=== PATIENT | female | born 1975 | race Caucasian/White ===

== ENCOUNTER 2019-12-10 19:08 | Emergency (ER) | payer OTHER, SELFPAY ==
[2019-12-10 19:22] VITALS: BP 122/80; PULSE 87; RESP 16; TEMP 36.4; O2SAT 99
--- NOTE | 2019-12-10 20:15 | ED.ABDPAIN ---
HPI - Abdominal Pain General Chief Complaint: Abdominal Pain Stated Complaint: severe abd pain,vomiting History of Present Illness HPI narrative: Severe abdominal abdominal pain for the past 3-4 days which is not being helped by Tylenol. Patient states that she threw up 2 today and she is not for sure what is causing it she was eating some nachos and then she started not to feel well and her gallbladder is already out. Related Data Home Medications Medication Instructions Recorded Confirmed bupropion HCl [Wellbutrin SR] 100 mg PO DAILY 12/10/19 12/10/19 metformin 1,000 mg PO BID 12/10/19 12/10/19 topiramate [Topamax] 50 mg PO BID 12/10/19 12/10/19 Allergies Allergy/AdvReac Type Severity Reaction Status Date / Time No Known Allergies Allergy Mild Verified 12/10/19 19:36 Review of Systems Review of Systems: Narrative: CONSTITUTIONAL: Denies fever, chills, or sweats. EYES: Denies visual changes, redness, or discharge. ENT: Denies rhinorrhea, congestion, sore throat, or otalgia. CARDIOVASCULAR:Denies chest pain, palpitations, or edema. RESPIRATORY: Denies cough or dyspnea. GASTROINTESTINAL: Reports abdominal pain, nausea, vomiting, or diarrhea. GENITOURINARY: Denies dysuria or hematuria. SKIN:[Denies rash or itching. MUSCULOSKELETAL:Denies back pain, joint pain, or myalgia. NEUROLOGIC: Denies headache, numbness, or weakness. PSYCHIATRIC:Denies anxiety or depression PMF Family History Family History (Updated 12/28/18 @ 15:50 by DOCTOR UNKNOWN) Father Diabetes mellitus Social History Social History Smoking status: Never smoker Gender identity (if verbalized by the patient): Female Comments At time as signature, I have reviewed and agree with nursing past medical, social, surgical and family history. Please see nursing chart for further information. There is no relevant family history pertinent to the presenting complaint. Exam Narrative: Exam Narrative: GENERAL:Well-appearing, well-nourished, and in no acute distress. HEAD:Normocephalic, atraumatic. EYES: PERRLA and EOMI. ENT: Nares clear, no rhinorrhea or epistaxis. Mucous membranes moist. NECK: Supple. CHEST: Clear to auscultation. No respiratory distress. HEART: Regular rate and rhythm. No murmur heard. Normal peripheral pulses. ABDOMEN: Soft, , nondistended, normal active bowel sounds. upper right quad painful to palpation EXTREMITIES: Normal range of motion. No edema. SKIN: Warm, dry, no rash. NEURO: No focal deficits. Alert and oriented x3. Course Vital Signs Vital signs: Vital Signs Temperature 97.6 F 12/10/19 19:22 Pulse Rate 87 12/10/19 19:22 Respiratory Rate 16 12/10/19 19:22 Blood Pressure 122/80 12/10/19 19:22 Pulse Oximetry 99 12/10/19 19:22 Temperature 97.6 F 12/10/19 19:22 Pulse Rate 87 12/10/19 19:22 Respiratory Rate 16 12/10/19 19:22 Blood Pressure 122/80 12/10/19 19:22 Pulse Oximetry 99 12/10/19 19:22 MDM - Abdominal Pain Lab Data Labs: Urine Glucose Negative Reference Range: Negative Urine Bilirubin Negative Reference Range: Negative Urine Ketone Negative Reference Range: Negative Urine Specific [place] 1.025 Reference Range:1.001-1.035 Urine Blood Negative Reference Range: Negative * * Urine pH 6.0 Reference Range: 5.0-9.0 Urine Protein Negative Reference Range: Negative Urine Urobilinogen 0.2 Reference Range: 0.2-1.0 Urine Nitrate Negative Reference Range: Negative Urine Leukocyte Trace Reference Range: Negative Urine Color Yellow Reference Range: Yellow Urine Characteristics Clear Discharge Plan Discharge C
== END 2019-12-10 20:29 | disposition home or self-care (01) ==
PROVIDERS: Emergency Provider Nurse Practitioner Family
DX: R10.11 Right upper quadrant pain (principal)
CPT/HCPCS: 81003; 99213; G0463

== ENCOUNTER → 2020-08-08 16:34 | Outpatient (CLI) | payer OTHER, SELFPAY ==
--- NOTE | ~2020-08-08 | MM_ITS ---
EXAMINATION: MM screening [facility] BI w dar HISTORY: Screening mammogram TECHNIQUE: Craniocaudal and mediolateral oblique 3-D tomosynthesis images were obtained and synthetic 2-D images were generated. CAD analysis was submitted and interpreted. COMPARISON: 07/09/2019, 05/18/2018, 05/13/2017 BREAST PARENCHYMAL COMPOSITION: There are scattered areas of fibroglandular density. FINDINGS: There is no evidence of suspicious mass, calcification, or architectural distortion to sugg est malignancy in either breast. There has been no suspicious interval change. IMPRESSION: 1. No mammographic evidence of malignancy. 2. Recommend routine screening mammography in one year. BI-RADS Category 1: Negative Reviewed, dictated and finalized at location A. BURNER
== END ==
PROVIDERS: Visit Provider Obstetrics & Gynecology Gynecology
DX: Z12.31 Encounter for screening mammogram for malignant neoplasm of breast (principal)
CPT/HCPCS: 77063; 77067

== ENCOUNTER 2021-07-16 09:33 | Emergency (ER) | payer OTHER, SELFPAY ==
--- NOTE | ~2021-07-16 | XR_ITS ---
EXAMINATION: XR chest 1V portable DATE: 07/16/2021 12:59 INDICATION: Right upper quadrant abdominal pain. TECHNIQUE: A single frontal view of the chest was obtained. COMPARISON: CT abdomen and pelvis 07/16/2021 FINDINGS: The chest demonstrates clear lungs without pneumonia, pleural effusion, or pneumothorax. Th e heart size is normal. IMPRESSION: 1. No acute cardiopulmonary disease. Reviewed, dictated and finalized at location B. ER MECHANIC
--- NOTE | ~2021-07-16 | CT_ITS ---
EXAMINATION: CT abdomen pelvis w con DATE: 07/16/2021 11:01 INDICATION: Right upper quadrant abdominal pain. TECHNIQUE: Computed tomography (CT) of the abdomen and pelvis was performed with 100 mL Omnipaque 350 intravenous contrast. Automated exposure control and iterative reconstruction technique were employe d. The dose-length product was 924.33 mGy-cm. COMPARISON: CT abdomen and pelvis 10/12/2010 FINDINGS: The visualized portions of the lung bases demonstrate mild atelectasis. Again seen is a 5 m m nodule in left lower lobe, likely benign. No pleural effusion. The heart size is normal. No pericar dial effusion. The liver is normal. The gallbladder is absent. There are surgical changes of the stom ach. The spleen, pancreas, adrenal glands, and kidneys are normal. There are no dilated loops of jennifer l. The appendix is normal. There are no pathologically enlarged lymph nodes. There is no free intrape ritoneal fluid. There is a retained catheter fragment in the subcutaneous fat anteriorly at the midli ne. There is mild subcutaneous scarring in left abdomen anteriorly. There is mild thoracolumbar spond ylosis. IMPRESSION: 1. No etiology for the patient's symptoms. Reviewed, dictated and finalized at location B. STRIAN TRAINER
[2021-07-16 09:35] VITALS: BP 152/100; PULSE 93; RESP 20; TEMP 36.4; O2SAT 100
[2021-07-16 10:18] LABS: Basophils Absolute Auto 0.1 K/mm3 (0.0-0.1); Basophils Percent Auto 0.6 % (0.2-1.2); Eosinophils Absolute Auto 0.1 K/mm3 (0-0.3); Eosinophils Percent Auto 1.1 % (0-4.4); Hematocrit 41.4 % (37.0-47.0); Hemoglobin 12.9 g/dL (12.0-15.0); Immature Granulocyte Absolute 0.05 K/mm3 (0.00-0.031); Immature Granulocyte Percent A 0.4 % (0-0.5); Lymphocytes Absolute Auto 2.65 K/mm3 (0.9-3.2); Lymphocytes Percent Auto 23.1 % (18.3-44.2); Mean Corpuscular HGB Conc 31.2 g/dl (32-36); Mean Corpuscular Hemoglobin 25.5 pg (26-34); Mean Platelet Volume 10.4 fl (7.4-10.4); Monocytes Absolute Auto 0.6 K/mm3 (0.1-0.6); Monocytes Percent Auto 5.1 % (2.6-8.5); Neutrophils Percent Auto 69.7 % (45.5-73.1); Platelet Count Result 386 k/mm3 (150-375); Red Blood Count 5.05 M/mm3 (4.2-5.4); Red Cell Distribution Width 15.2 % (11.5-14.5); White Blood Count 11.5 K/mm3 (4.5-10.0)
[2021-07-16 10:29] LABS: Alanine Aminotransferase 13 U/L (4-35); Albumin Level 4.1 g/dL (3.5-5.1); Alkaline Phosphatase 69 U/L (38-126); Anion Gap 8 mmol/L (8-16); Aspartate Amino Transferase 20 U/L (14-36); Bilirubin,Total 0.4 mg/dL (0.2-1.3); Blood Urea Nitrogen 16 mg/dL (7-17); Calcium 9.4 mg/dL (8.4-10.2); Carbon Dioxide 22 mmol/L (22-30); Chloride 107 mmol/L (98-107); Estimated CRCL calculation 53 ml/min; Estimated Glomerular Filt Rate 48; Glucose 83 mg/dL (65-110); Lipase 105 U/L (23-300); Potassium 3.8 mmol/L (3.4-5.0); Sodium 137 mmol/L (137-145)
[2021-07-16] MEDS: ONDANSETRON INJ 4 MG/2 ML VIAL IV PUSH (10:44)
[2021-07-16 10:50] LABS: Add Urine Microscopic? YES; Appearance Urine Cloudy (Clear); Bacteria Urine 1+ /hpf; Bilirubin Urine Negative (Negative); Color Urine Straw (Yellow); Glucose Urine UA Negative (Negative); Ketones Urine Negative (Negative); Leukocyte Esterase Ur 3+ LEU/UL (Negative); Nitrate Urine Negative (Negative); Protein Urine Negative (Negative); Specific Grav Ur 1.008 (1.001-1.035); Squamous Epithelial Cell Urine Moderate /hpf (Few); Transitional Epi Cells Urine Rare /hpf (None Seen); Urobilinogen Urine Negative mg/dL (<2.0)
[2021-07-16 10:54] LABS: Blood Urine Negative (Negative)
--- NOTE | 2021-07-16 13:08 | ED.GENADULT ---
HPI - General Adult General Chief complaint: Abdominal Pain Stated complaint: abd pain Time Seen by Provider: 07/16/21 09:39 Source: patient Mode of arrival: ambulatory Limitations: no limitations History of Present Illness HPI narrative: Patient is a 39-year-old female presenting with chief complaint of right upper quadrant pain from the urgent care. Patient reports that the pain has been present for 2 days and is intermittently sharp and achy in nature. Patient reports that her gallbladder was removed over 5 years ago and she had a gastric bypass in 2010. Patient denies any additional abdominal surgeries and states that her appendix is intact. Patient denies fever chills or vomiting, but reports nausea. Patient denies any cough, shortness of breath or chest pain. Patient has not taken anything to alleviate her symptoms. Patient did not note worsening of her symptoms with eating or drinking. Related Data Home Medications Medication Instructions Recorded Confirmed metformin 1,000 mg PO BID 12/10/19 12/10/19 topiramate [Topamax] 50 mg PO BID 12/10/19 12/10/19 bupropion HCl 100 mg tablet,12 hr 150 mg PO BID tablet 11/21/20 sustained-release ergocalciferol (vitamin D2) 1,250 50,000 unit PO WEEKLY cap 11/21/20 mcg (50,000 unit) capsule norethindrone ac-eth estradiol tablet 07/16/21 [Danni] Allergies Allergy/AdvReac Type Severity Reaction Status Date / Time No Known Allergies Allergy Mild Verified 07/16/21 09:38 Review of Systems Review of Systems: CONSTITUTIONAL: Denies fever, chills, or sweats. EYES: Denies visual changes, redness, or discharge. ENT: Denies rhinorrhea, congestion, sore throat, or otalgia. CARDIOVASCULAR: Denies chest pain, palpitations, or edema. RESPIRATORY: Denies cough or dyspnea. GASTROINTESTINAL: Reports right upper quadrant abdominal pain, nausea denies vomiting, or diarrhea. GENITOURINARY: Denies dysuria or hematuria. SKIN: Denies rash or itching. MUSCULOSKELETAL: Denies back pain, joint pain, or myalgia. NEUROLOGIC: Denies headache, numbness, dizziness, or weakness. PSYCHIATRIC: Denies anxiety or depression. [facility] Surgical History Surgical History (Updated 11/21/20 @ 15:46 by Elin L. Gonzalez, RN) History of cholecystectomy History of gastric bypass History of laparoscopic adjustable gastric banding Family History Family History (Updated 12/28/18 @ 15:50 by DOCTOR UNKNOWN) Father Diabetes mellitus Social History Social History (Updated 11/21/20 @ 15:47 by Elin Gonzalez RN) Smoking status: Never smoker Alcohol intake: current Substance use: never Substance use type: does not use Gender identity (if verbalized by the patient): Female Exam Narrative: GENERAL: Well-appearing, well-nourished, and in no acute distress. HEAD: Normocephalic, atraumatic. EYES: PERRLA and EOMI. CHEST: Clear to auscultation. No respiratory distress. No wheezes rales or rhonchi HEART: Regular rate and rhythm. No murmur heard. Normal peripheral pulses. ABDOMEN: Soft, tenderness to the right upper quadrant with deep palpation, nondistended, normal active bowel sounds. EXTREMITIES: Normal range of motion. No edema. SKIN: Warm, dry, no rash. NEURO: No focal deficits. Alert and oriented x3. PSYCH: Normal mood and affect. Course Vital Signs Vital signs: Vital Signs Temperature 97.6 F 07/16/21 09:35 Pulse Rate 93 07/16/21 09:35 Respiratory Rate 20 07/16/21 09:35 Blood Pressure 152/100 H 07/16/21 09:35 Pulse Oximetry 100 07/16/21 09:35 Temperature 97.6 F 07/16/21 09:35 Pulse Rate 93 07/16/21 09:35 Respiratory Rate 20 07/16/21 09:35 Blood Pressure 152/100 H 07/16/21 09:35 Pulse Oximetry 100 07/16/21 09:35 Medical Decision Making MDM Narrative Medical decision making narrative: Patient CT does not show any signs of etiology that would cause her discomfort. Patient may be having some biliary colic in the absence of the gallbl
[2021-07-16 13:27] VITALS: BP 112/79; PULSE 86; RESP 20; O2SAT 100
== END 2021-07-16 13:29 | disposition home or self-care (01) ==
PROVIDERS: Physician Assistant; Emergency Provider Emergency Medicine
DX: R10.11 Right upper quadrant pain (principal); Z79.84 Long term (current) use of oral hypoglycemic drugs; Z98.84 Bariatric surgery status
CPT/HCPCS: 36415; 71045; 74177; 80053; 81001; 81025; 83690; 85025; 87086; 87088; 96365; 96375; 99284; J0131; J2405; Q9967

== ENCOUNTER 2021-07-30 03:02 | Day surgery (SDC) | payer OTHER, SELFPAY ==
[2021-07-17 09:57] VITALS: BMI 35.6
[2021-07-30 12:11] VITALS: BP 138/87; PULSE 91; RESP 18; TEMP 36.4; O2SAT 100
[2021-07-30] MEDS: LACTATED RINGERS 1,000 ML 150 ML IV CONT (12:12)
--- NOTE | 2021-07-30 12:21 | PM.HPGS ---
History of Present Illness History of Present Illness Consent: Risks, benefits, and alternatives have been discussed and questions answered. Patient agrees to proceed with procedure. Chief complaint: family hx of colon polyps Narrative: Mirella Granados is a 46 year old female here for colon cancer screening. She has a family history of colon polyps, both parents, and also colon cancer in a grandparent Review of Systems Review of Systems: All systems reviewed & are unremarkable except as noted in HPI and below PMFSH Surgical History Surgical History History of cholecystectomy History of gastric bypass History of laparoscopic adjustable gastric banding Family History Family History Father Diabetes mellitus Social History Social History Smoking status: Never smoker Alcohol intake: never Substance use: never Substance use type: does not use Living arrangements: alone Gender identity (if verbalized by the patient): Female Spiritual care concerns: No Meds Home Medications and Allergies Home Medications Medication Instructions Recorded Confirmed Type topiramate [Topamax] 50 mg PO BID 12/10/19 07/30/21 History bupropion HCl 100 mg tablet,12 hr 150 mg PO BID tablet 11/21/20 07/30/21 History sustained-release ergocalciferol (vitamin D2) 1,250 50,000 unit PO WEEKLY cap 11/21/20 07/30/21 History mcg (50,000 unit) capsule Allergies Allergy/AdvReac Type Severity Reaction Status Date / Time No Known Allergies Allergy Mild Verified 07/30/21 12:10 Vital Signs Vital Signs - 24 hr 07/30/21 12:11 Temperature 36.4 C Pulse Rate 91 Respiratory Rate 18 Blood Pressure 138/87 Pulse Oximetry 100 Exam Resp: Auscultation: clear to auscultation bilaterally Cardio: Rate: regular rate Rhythm: regular rhythm GI: GI Palp: Yes Soft to palpation and No Tenderness to palpation present (GI) Assessment and Plan Assessment and plan (1) Colon cancer screening: Code(s): Z12.11 - Encounter for screening for malignant neoplasm of colon Status: Acute Assessment and Plan: Colonoscopy with possible biopsy or polypectomy or cautery or injection of substances.
[2021-07-30 13:03] VITALS: BP 112/75; PULSE 80; RESP 18; O2SAT 100
[2021-07-30 13:13] VITALS: BP 114/83; PULSE 78; RESP 21; O2SAT 100
[2021-07-30 13:23] VITALS: BP 138/89; PULSE 81; RESP 19; O2SAT 100
== END 2021-07-30 13:35 | disposition home or self-care (01) ==
PROVIDERS: Visit Provider Internal Medicine Gastroenterology
PROC: 0DJD8ZZ Inspection of Lower Intestinal Tract, Via Natural or Artificial Opening Endoscopic (ICD-10-PCS; CPT 45378; principal; 2021-07-30 13:30)
DX: Z12.11 Encounter for screening for malignant neoplasm of colon (principal); K63.89 Other specified diseases of intestine; D12.4 Benign neoplasm of descending colon; Z80.0 Family history of malignant neoplasm of digestive organs; Z98.84 Bariatric surgery status; Z83.71 Family history of colonic polyps
CPT/HCPCS: 45385; 88305; J2704; J7120

== ENCOUNTER → 2021-11-16 13:14 | Outpatient (CLI) | payer OTHER, SELFPAY ==
--- NOTE | ~2021-11-16 | MM_ITS ---
EXAMINATION: MM screening [facility] BI w dar HISTORY: Screening TECHNIQUE: Craniocaudal and mediolateral oblique 3-D tomosynthesis images were obtained and synthetic 2-D images were generated. CAD analysis was submitted and interpreted. COMPARISON: Comparison to multiple prior studies sequentially, with oldest reviewed study dated 04/15. BREAST PARENCHYMAL COMPOSITION: Breast composed of scattered areas of fibroglandular density FINDINGS: There is no evidence of suspicious mass, calcification, or architectural distortion to sugg est malignancy in either breast. There has been no suspicious interval change. IMPRESSION: 1. No mammographic evidence of malignancy. 2. Recommend routine screening mammography in one year. BI-RADS Category 1: Negative Reviewed, dictated and finalized at location A.
== END ==
PROVIDERS: Visit Provider Obstetrics & Gynecology Gynecology
DX: Z12.31 Encounter for screening mammogram for malignant neoplasm of breast (principal)
CPT/HCPCS: 77063; 77067

== ENCOUNTER → 2021-11-27 | Outpatient (REF) | payer OTHER, SELFPAY | END | disposition home or self-care (01) | LOC: ANHLAB 13:18 | PROVIDERS: Visit Provider Nurse Practitioner | DX: D22.5 Melanocytic nevi of trunk (principal) | CPT/HCPCS: 88305; 88342 ==

== ENCOUNTER → 2021-12-18 16:05 | Outpatient (REF) | payer OTHER, SELFPAY | LOC: ANHLAB 16:05 | PROVIDERS: Visit Provider Nurse Practitioner | DX: L98.9 Disorder of the skin and subcutaneous tissue, unspecified (principal) | CPT/HCPCS: 88305 ==

== ENCOUNTER 2022-03-26 14:46 | Emergency (ER) | payer OTHER, SELFPAY ==
[2022-03-26 14:53] VITALS: BP 150/106; PULSE 110; RESP 16; TEMP 36.7; O2SAT 100
--- NOTE | 2022-03-26 14:58 | ED.FEMALEGU ---
HPI - Female Genitourinary General Chief complaint: Urogenital-Female Stated complaint: UTI Time Seen by Provider: 03/26/22 15:00 History of Present Illness HPI Narrative: 46-year-old female presents to express care with complaints of urinary symptoms of feeling bloated more on one side than the other with no burning or pain stated with urination. Patient reports that she has had similar symptoms like this in the past when she has UTI. Patient denies any fevers chills or sweats, denies any abdominal pain, nausea or vomiting or diarrhea. MD elicited complaint: UTI Onset (ago): day(s) (today) Related Data Home Medications Medication Instructions Recorded Confirmed topiramate 50 mg tablet (Topamax) 50 mg PO BID 12/10/19 03/26/22 bupropion HCl 100 mg tablet,12 hr 150 mg PO BID 11/21/20 03/26/22 sustained-release (Wellbutrin SR) ergocalciferol (vitamin D2) 1,250 50,000 unit PO WEEKLY 11/21/20 03/26/22 mcg (50,000 unit) capsule levothyroxine 100 mcg tablet 100 mcg PO DAILY 03/26/22 03/26/22 (Synthroid) norethindrone acetate 1.5 1 tablet PO DAILY 03/26/22 03/26/22 mg-ethinyl estradiol 30 mcg tablet (Danni) phentermine 15 mg capsule 15 mg PO DAILY 03/26/22 03/26/22 Allergies Allergy/AdvReac Type Severity Reaction Status Date / Time No Known Allergies Allergy Mild Verified 03/26/22 14:55 Review of Systems Review of Systems: CONSTITUTIONAL: Denies fever, chills, or sweats. EYES: Denies visual changes, redness, or discharge. ENT: Denies rhinorrhea, congestion, sore throat, or otalgia. CARDIOVASCULAR: Denies chest pain, palpitations, or edema. RESPIRATORY: Denies cough or dyspnea. GASTROINTESTINAL: Denies abdominal pain, nausea, vomiting, or diarrhea.reports she feels bloated GENITOURINARY: Denies dysuria or hematuria, bloating sensation SKIN: Denies rash or itching. MUSCULOSKELETAL: Denies back pain, joint pain, or myalgia. NEUROLOGIC: Denies headache, numbness, or weakness. PSYCHIATRIC: Positive for history of anxiety or depression. All systems reviewed & are unremarkable except as noted in HPI and below PMFSH Past Medical History Medical History (Updated 03/27/22 @ 00:29 by Fely Brandt NP) Anxiety and depression Migraine UTI (urinary tract infection) Surgical History Surgical History History of cholecystectomy History of gastric bypass History of laparoscopic adjustable gastric banding Family History Family History Father Diabetes mellitus Social History Social History Smoking status: Never smoker Alcohol intake: never Substance use: never Substance use type: does not use Gender identity (if verbalized by the patient): Female Spiritual care concerns: No Comments At time of signature, agree with nursing past medical, surgical, social and family history. There is no relevant family history pertinent to the presenting complaint Exam Narrative: GENERAL: Well-appearing, well-nourished, and in no acute distress. HEAD: Normocephalic, atraumatic. EYES: PERRLA and EOMI. ENT: Nares clear, no rhinorrhea or epistaxis. Mucous membranes moist.TM's normal with good light reflex, throat pink with no lesions or exudates, no tonsil swellling NECK: Supple. no lymphadenopathy CHEST: Clear to auscultation. No respiratory distress.SAO2 100% on room air, no tachypnea HEART: Regular rate and rhythm. No murmur heard. Normal peripheral pulses. ABDOMEN: Soft, nontender, nondistended, normal active bowel sounds.reports bloated feeling, denies any CVA tenderness on examination. EXTREMITIES: Normal range of motion. No edema. SKIN: Warm, dry, no rash. NEURO: No focal deficits. Alert and oriented x3. Course Course Level of Care: Express Care Visit Vital Signs Vital signs: Vital Signs Temperature 36.7 C 03/26/22 14:53 P
[2022-03-26 15:55] VITALS: BP 148/88; PULSE 90; RESP 20; O2SAT 98
== END 2022-03-26 15:55 | disposition home or self-care (01) ==
PROVIDERS: Emergency Provider Registered Nurse
DX: N39.0 Urinary tract infection, site not specified (principal); F41.9 Anxiety disorder, unspecified; F32.A Depression, unspecified
CPT/HCPCS: 81003; 87086; 87088; 99213; G0463

== ENCOUNTER 2022-06-24 15:04 | Emergency (ER) | payer OTHER, SELFPAY ==
[2022-06-24 15:21] VITALS: BP 135/95; PULSE 82; RESP 16; TEMP 36.2; O2SAT 99
--- NOTE | 2022-06-24 15:40 | ED.FEMALEGU ---
HPI - Female Genitourinary General Chief complaint: Urogenital-Female Stated complaint: UTI Time Seen by Provider: 06/24/22 15:40 Source: patient, RN notes reviewed and old records reviewed Mode of arrival: ambulatory Limitations: no limitations History of Present Illness HPI Narrative: 47-year-old female presents to the [facility] with complaints of low back pain, urinary frequency that started this morning. Denies burning. No rashes. No fevers. Denies abdominal pains. Related Data Home Medications Medication Instructions Recorded Confirmed topiramate 50 mg tablet (Topamax) 50 mg PO BID 12/10/19 03/26/22 ergocalciferol (vitamin D2) 1,250 50,000 unit PO WEEKLY 11/21/20 03/26/22 mcg (50,000 unit) capsule levothyroxine 100 mcg tablet 100 mcg PO DAILY 03/26/22 03/26/22 (Synthroid) losartan 25 mg tablet mg 06/24/22 Allergies Allergy/AdvReac Type Severity Reaction Status Date / Time No Known Allergies Allergy Mild Verified 06/24/22 15:38 Review of Systems Review of Systems: All systems reviewed & are unremarkable except as noted in HPI and below Constitutional: Constitutional: Reports no additional constitutional complaints, Denies chills and Denies fever(s) Eyes: Eyes: Reports no additional eye complaints ENT: Reports system reviewed and no additional complaints, except as documented Cardiovascular: Cardiovascular: Reports no additional cardiovascular complaints Respiratory: Respiratory: Reports no additional respiratory complaints Gastrointestinal: Gastrointestinal: Reports no additional gastrointestinal complaints Genitourinary: Genitourinary: Reports as per HPI Musculoskeletal: Musculoskeletal: Reports no additional musculoskeletal complaints Integumentary/Breasts: Skin/Breast: Reports system reviewed and no additional complaints, except as docu Neurologic: Reports system reviewed and no additional complaints, except as documented Psychiatric: Psychiatric: Reports no additional psychiatric complaints Allergic/Immunologic: Allergic/Immunologic: Reports no additional allergic/immunologic complaints [facility] Past Medical History Medical History (Updated 06/25/22 @ 09:28 by Oralia Abarca APRN) Anxiety and depression Migraine UTI (urinary tract infection) Surgical History Surgical History History of cholecystectomy History of gastric bypass History of laparoscopic adjustable gastric banding Family History Family History Father Diabetes mellitus Social History Social History Smoking status: Never smoker Alcohol intake: never Substance use: never Substance use type: does not use Gender identity (if verbalized by the patient): Female Spiritual care concerns: No Comments At the time of my signature, I reviewed and agree with the nursing past medical, surgical, social, and family history. There is no relevant family history pertinent to the patient complaint. Exam Const: General: healthy appearing, no acute distress, alert and well nourished Nutritional Appearance: well nourished and obese Orientation/consciousness: patient oriented x3 Limitations: no limitations HENMT: Head: normal to inspection Ears: external ears normal Eyes: General: appearance normal, both eyes and all related structures Pupils: Equal, round and reactive pupils present Neck: Neck: normal visual inspection, no lymphadenopathy and no meningeal signs Chest: Chest palpation & inspection: normal inspection of the chest Resp: Effort & Inspection: normal respiratory effort and no use of accessory muscles Auscultation: clear to auscultation bilaterally, no crackles, no rales, no rhonchi and no wheezes Cardio: Rate: regular rate Rhythm: regular rhythm GI: Inspection: normal to inspection GI Palp: Yes Soft to palpation and No Tenderness
== END 2022-06-24 16:00 | disposition home or self-care (01) ==
PROVIDERS: Emergency Provider Nurse Practitioner
DX: N39.0 Urinary tract infection, site not specified (principal)
CPT/HCPCS: 81003; 87086; 99213; G0463

== ENCOUNTER 2022-06-25 15:12 | Emergency (ER) | payer OTHER, SELFPAY ==
[2022-06-25] VITALS (16 sets, daily range): BP systolic 131–169; BP diastolic 80–92; PULSE 80–143; RESP 16–18; TEMP 37.7; O2SAT 75–100
--- NOTE | ~2022-06-25 | CT_ITS ---
EXAMINATION: CT abdomen pelvis w con DATE: 06/25/2022 16:33 INDICATION: Right upper quadrant abdominal pain TECHNIQUE: Computed tomography (CT) of the abdomen and pelvis was performed with 100 mL Omnipaque-350 intravenous contrast. Automated exposure control and iterative reconstruction technique were employe d. The dose-length product was 1220.98 mGy-cm. COMPARISON: 07/16/2021 FINDINGS: 6-7 mm subpleural left lower lobe nodule and 4 mm right lower lobe nodule along the major fissure, kaylee th of which were present on study dated 2010 consistent with old granulomatous disease. Heart size is normal. No pericardial or pleural effusion. Small sliding-type hiatal hernia and change of prior sle ольга gastrectomy. Gallbladder is nonvisualized and likely surgically absent. Liver, spleen, pancreas, bilateral adrenal glands and kidneys are normal. Bowels including the appendix are normal. 1.8 cm lef t adnexal cyst. Bladder, uterus and right adnexa are unremarkable. No free intraperitoneal gas or flu id. No pathologically enlarged abdominal or pelvic lymphadenopathy. And seen is some scarring in the retained catheter fragment in the anterior abdominal wall. Mild thoracolumbar spondylosis. IMPRESSION: 1. No acute intra-abdominal/pelvic process. Reviewed, dictated and finalized at location B.
--- NOTE | 2022-06-25 15:38 | ED.GENADULT ---
HPI - General Adult General Chief complaint: Abdominal Pain Stated complaint: abdominal pain that began today - known UTI Time Seen by Provider: 06/25/22 15:30 History of Present Illness HPI narrative: 47-year-old female with recent diagnosis of urinary tract infection presenting the emergency department for evaluation of worsening right upper quadrant right flank pain. Patient states yesterday she was diagnosed with UTI did start taking antibiotics. Patient states today while she was at work she had onset of the right flank pain. Patient states the pain was sharp and did radiate across to the left side. Patient states since the pain began it has improved mildly. Patient had some associated nausea but denies any current nausea or vomiting. Patient does have a history of gastric sleeve about 7 years ago and cholecystectomy about 5 years ago. Patient denies any prior history of ureteral calculi. Related Data Home Medications Medication Instructions Recorded Confirmed ergocalciferol (vitamin D2) 1,250 50,000 unit PO WEEKLY 11/21/20 03/26/22 mcg (50,000 unit) capsule levothyroxine 100 mcg tablet 100 mcg PO DAILY 03/26/22 03/26/22 (Synthroid) losartan 25 mg tablet mg 06/24/22 Allergies Allergy/AdvReac Type Severity Reaction Status Date / Time No Known Allergies Allergy Mild Verified 06/25/22 15:12 Review of Systems Review of Systems: CONSTITUTIONAL: Denies fever, chills, or sweats. EYES: Denies visual changes, redness, or discharge. ENT: Denies rhinorrhea, congestion, sore throat, or otalgia. CARDIOVASCULAR: Denies chest pain, palpitations, or edema. RESPIRATORY: Denies cough or dyspnea. GASTROINTESTINAL: See HPI GENITOURINARY: Denies dysuria or hematuria. SKIN: Denies rash or itching. MUSCULOSKELETAL: Denies back pain, joint pain, or myalgia. NEUROLOGIC: Denies headache, numbness, or weakness. [facility] Past Medical History Medical History (Updated 06/26/22 @ 00:00 by Rosalba Chan) Anxiety and depression Migraine UTI (urinary tract infection) Surgical History Surgical History History of cholecystectomy History of gastric bypass History of laparoscopic adjustable gastric banding Family History Family History Father Diabetes mellitus Social History Social History Smoking status: Never smoker Alcohol intake: never Substance use: never Substance use type: does not use Gender identity (if verbalized by the patient): Female Spiritual care concerns: No Exam Narrative: APPEARANCE: Well appearing, no pain, no distress, well-nourished. HEAD: normocephalic, atraumatic. EYES: PERRLA/EOMI, conjunctivae clear. NOSE: Normal no drainage NECK: Supple. No adenopathy, no masses. RESPIRATORY: Airway patent, respirations nonlabored. Clear to auscultation bilaterally, no rales, rhonchi, wheezing. CARDIOVASCULAR: Regular rate and rhythm without murmurs rubs or gallops. ABDOMINAL: Soft, right CVA tenderness to palpation. Right upper quadrant tenderness to palpation, normal bowel sounds, nondistended MUSCULOSKELETAL: Moves all extremities. Strength/ROM intact, No edema, No calf tenderness. NEURO: Alert. Cranial nerves II through XII intact. Grossly intact SKIN: Warm, dry. Normal Color Course Vital Signs Vital signs: Vital Signs Temperature 100 F H 06/25/22 15:13 Pulse Rate 130 H 06/25/22 15:13 Respiratory Rate 16 06/25/22 15:13 Blood Pressure 136/83 06/25/22 15:13 Pulse Oximetry 98 06/25/22 15:13 Oxygen Delivery Room Air 06/25/22 15:13 Temperature 100 F H 06/25/22 15:13 Pulse Rate 80 06/25/22 19:04 Respiratory Rate 18 06/25/22 19:04 Blood Pressure 131/80 06/25/22 19:04 Pulse Oximetry 99 06/25/22 17:45 Oxygen Delivery Room Air 06/25/22 15:13 Medical Decision Making Vital Signs Vital
[2022-06-25 15:51] LABS: Appearance Urine Clear (Clear); Bilirubin Urine Negative (Negative); Blood Urine Trace-lysed (Negative); Color Urine Yellow (Yellow); Glucose Urine UA Negative (Negative); Ketones Urine Negative (Negative); Leukocyte Esterase Ur 1+ LEU/UL (Negative); Nitrate Urine Negative (Negative); Protein Urine Negative (Negative); Specific Grav Ur <= 1.005 (1.001-1.035); Urobilinogen Urine 0.2 mg/dL (<2.0)
[2022-06-25 15:59] LABS: Hematocrit 42.8 % (37.0-47.0); Hemoglobin 13.8 g/dL (12.0-15.0); Mean Corpuscular HGB Conc 32.2 g/dl (32-36); Mean Corpuscular Volume 86.8 fl (80-100); Mean Platelet Volume 10.7 fl (7.4-10.4); Platelet Count Result 296 k/mm3 (150-375); Red Blood Count 4.93 M/mm3 (4.2-5.4); White Blood Count 15.8 K/mm3 (4.5-10.0)
[2022-06-25] MEDS: SODIUM CHLORIDE 0.9% IV 1,000 ML 999 ML IV CONT ×2 (16:08→17:46)
[2022-06-25 16:11] LABS: Alanine Aminotransferase 53 U/L (6-35); Albumin Level 4.3 g/dL (3.5-5.1); Alkaline Phosphatase 101 U/L (38-126); Anion Gap 10 mmol/L (8-16); Aspartate Amino Transferase 35 U/L (14-36); Bilirubin,Total 0.6 mg/dL (0.2-1.3); Blood Urea Nitrogen 11 mg/dL (7-17); Calcium 9.3 mg/dL (8.4-10.2); Carbon Dioxide 27 mmol/L (22-30); Chloride 99 mmol/L (98-107); Estimated CRCL calculation 73 ml/min; Estimated Glomerular Filt Rate > 60; Glucose 104 mg/dL (65-110); Lipase 38 U/L (23-300); Potassium 3.4 mmol/L (3.4-5.0); Sodium 136 mmol/L (137-145)
[2022-06-25 16:27] LABS: Band Neutrophils Percent 3 % (0-6); Lymphocytes Absolute Manual 0.47 K/mm3 (1.1-4.5); Monocytes Absolute Manual 0.63 K/mm3 (0.1-0.90); Monocytes Percent Manual 4 % (3-9); Neutrophils Absolute Manual 14.69 K/mm3 (1.7-7.2); Neutrophils Percent Manual 90 % (46-73); Total Cells Counted 100
[2022-06-25 16:28] LABS: Platelet Estimate Adequate (Adequate); Schistocytes None Seen (NORMAL)
[2022-06-25 16:30] LABS: Bacteria Urine 2+ /hpf; Mucus Urine Rare /lpf; Squamous Epithelial Cell Urine Few /hpf (Few)
[2022-06-25 16:31] LABS: Add Urine Microscopic? YES
[2022-06-25] MEDS: PHENAZOPYRIDINE HCL 100 MG TABLET 200 MG PO (17:43)
[2022-06-25] MEDS: BELLADONNA ALK/PHENOB ELIX 10 ML, MAG HYDROX/ALUMINUM HYD/SIMETH 30 ML, LIDOCAINE HCL 2... PO (17:46)
== END 2022-06-25 19:04 | disposition home or self-care (01) ==
PROVIDERS: Emergency Provider Emergency Medicine
DX: N39.0 Urinary tract infection, site not specified (principal); Z98.84 Bariatric surgery status
CPT/HCPCS: 36415; 74177; 80053; 81001; 81025; 83690; 85025; 87086; 87088; 87147; 96360; 96361; 99284; A9270; J7030; Q9967

== ENCOUNTER 2022-09-03 17:38 | Emergency (ER) | payer OTHER, SELFPAY ==
[2022-09-03 17:50] VITALS: BP 139/85; PULSE 95; RESP 20; TEMP 37.2; O2SAT 100
--- NOTE | 2022-09-03 18:12 | ED.URI ---
HPI - URI/Sore Throat General Chief Complaint: Upper Respiratory Infection Stated Complaint: sore throat Time Seen by Provider: 09/03/22 18:12 Source: patient, RN notes reviewed and old records reviewed Mode of arrival: ambulatory Limitations: no limitations History of Present Illness HPI Narrative: 47-year-old female presents to the [facility] with complaints of a sore throat that started today. Has not taken anything for her symptoms. Denies fevers, chest pain, abdominal pain. No upper respiratory symptoms Wanted to make sure that it was not strep Related Data Home Medications Medication Instructions Recorded Confirmed ergocalciferol (vitamin D2) 1,250 50,000 unit PO WEEKLY 11/21/20 09/03/22 mcg (50,000 unit) capsule levothyroxine 100 mcg tablet 100 mcg PO DAILY 03/26/22 09/03/22 (Synthroid) losartan 25 mg tablet 25 mg PO DAILY 06/24/22 09/03/22 metformin 500 mg tablet,extended 50 mg PO DAILY 09/03/22 09/03/22 release 24 hr semaglutide 0.25 mg or 0.5 mg (2 See Rx Instructions .Route 09/03/22 09/03/22 mg/1.5 mL) subcutaneous pen .COMPLEX rx injector (Ozempic) Allergies Allergy/AdvReac Type Severity Reaction Status Date / Time No Known Allergies Allergy Mild Verified 09/03/22 18:00 Review of Systems Review of Systems: All systems reviewed & are unremarkable except as noted in HPI and below Constitutional: Constitutional: Reports no additional constitutional complaints Eyes: Eyes: Reports no additional eye complaints ENT: Reports as per HPI and Reports sore throat Cardiovascular: Cardiovascular: Reports no additional cardiovascular complaints, Denies chest pain and Denies dyspnea Respiratory: Respiratory: Reports no additional respiratory complaints, Denies chest congestion, Denies cough and Denies dyspnea Gastrointestinal: Gastrointestinal: Reports no additional gastrointestinal complaints, Denies abdominal pain, Denies nausea and Denies vomiting Musculoskeletal: Musculoskeletal: Reports no additional musculoskeletal complaints Integumentary/Breasts: Skin/Breast: Reports system reviewed and no additional complaints, except as docu Neurologic: Reports system reviewed and no additional complaints, except as documented Psychiatric: Psychiatric: Reports no additional psychiatric complaints Allergic/Immunologic: Allergic/Immunologic: Reports no additional allergic/immunologic complaints PMFSH Past Medical History Medical History Anxiety and depression Migraine UTI (urinary tract infection) Surgical History Surgical History History of cholecystectomy History of gastric bypass History of laparoscopic adjustable gastric banding Family History Family History Father Diabetes mellitus Social History Social History Smoking status: Never smoker Alcohol intake: never Substance use: never Substance use type: does not use Gender identity (if verbalized by the patient): Female Spiritual care concerns: No Comments At the time of my signature, I reviewed and agree with the nursing past medical, surgical, social, and family history. There is no relevant family history pertinent to the patient complaint. Exam Const: General: cooperative, healthy appearing, comfortable, no acute distress, well developed, alert and well nourished Nutritional Appearance: well nourished and obese Orientation/consciousness: patient oriented x3 Limitations: no limitations HENMT: Head: normal to inspection Ears: hearing grossly normal bilaterally and external ears normal Face/Nose/Sinus: Normal external nose present, Normal nares present, Normal nasal mucous membranes and turbinates present and normal facial exam Face and sinus: normal facial exam Mouth: Yes Normal oral and palatal mucosa
== END 2022-09-03 18:38 | disposition home or self-care (01) ==
PROVIDERS: Emergency Provider Nurse Practitioner
DX: J02.9 Acute pharyngitis, unspecified (principal); F41.9 Anxiety disorder, unspecified; F32.A Depression, unspecified
CPT/HCPCS: 87081; 87880; 99213; G0463

== ENCOUNTER 2022-09-04 15:50 | Outpatient (CLI) | payer OTHER, SELFPAY ==
[2022-09-04 15:59] LABS: Basophils Absolute Auto 0.1 K/mm3 (0.0-0.1); Basophils Percent Auto 0.5 % (0.2-1.2); Eosinophils Absolute Auto 0.3 K/mm3 (0-0.3); Eosinophils Percent Auto 1.7 % (0-4.4); Hematocrit 39.7 % (37.0-47.0); Hemoglobin 12.6 g/dL (12.0-15.0); Immature Granulocyte Absolute 0.05 K/mm3 (0.00-0.031); Immature Granulocyte Percent A 0.3 % (0-0.5); Lymphocytes Absolute Auto 3.11 K/mm3 (0.9-3.2); Mean Corpuscular HGB Conc 31.7 g/dl (32-36); Mean Corpuscular Hemoglobin 28.3 pg (26-34); Mean Platelet Volume 10.4 fl (7.4-10.4); Monocytes Percent Auto 6.4 % (2.6-8.5); Neutrophils Absolute Auto 10.4 K/mm3 (1.3-6.7); Neutrophils Percent Auto 70.1 % (45.5-73.1); Platelet Count Result 313 k/mm3 (150-375); Red Blood Count 4.46 M/mm3 (4.2-5.4); White Blood Count 14.8 K/mm3 (4.5-10.0)
[2022-09-04 17:29] LABS: Alanine Aminotransferase 22 U/L (6-35); Albumin Level 3.8 g/dL (3.5-5.1); Alkaline Phosphatase 65 U/L (38-126); Anion Gap 6 mmol/L (8-16); Aspartate Amino Transferase 24 U/L (14-36); Bilirubin,Total 0.2 mg/dL (0.2-1.3); Blood Urea Nitrogen 10 mg/dL (7-17); Calcium 8.8 mg/dL (8.4-10.2); Carbon Dioxide 28 mmol/L (22-30); Chloride 104 mmol/L (98-107); Estimated Glomerular Filt Rate > 60; Glucose 94 mg/dL (65-110); Potassium 3.8 mmol/L (3.4-5.0); Sodium 138 mmol/L (137-145)
[2022-09-04 17:36] LABS: Iron 21 ug/dL (37-170)
[2022-09-04 17:47] LABS: Percent Iron Saturation 5 % (20-50)
[2022-09-04 18:38] LABS: Folic Acid > 20.0 ng/mL (2.76->20)
== END 2022-09-04 15:51 | disposition home or self-care (01) ==
LOC: ANHLAB 15:51
PROVIDERS: Visit Provider Internal Medicine Hematology & Oncology
DX: D64.9 Anemia, unspecified (principal)
CPT/HCPCS: 36415; 80053; 82607; 82728; 82746; 83540; 83550; 85025

== ENCOUNTER → 2023-02-03 11:44 | Outpatient (CLI) | payer OTHER, SELFPAY ==
--- NOTE | ~2023-02-03 | MM_ITS ---
EXAMINATION: MM screening hilda BI w dar HISTORY: Screening mammogram TECHNIQUE: Craniocaudal and mediolateral oblique 3-D tomosynthesis images were obtained and synthetic 2-D images were generated. CAD analysis was submitted and interpreted. COMPARISON: 02/03/2023, 11/16/2021, 08/08/2020 mammogram examinations BREAST PARENCHYMAL COMPOSITION: There are scattered areas of fibroglandular density. FINDINGS: There is no evidence of suspicious mass, calcification, or architectural distortion to sugg est malignancy in either breast. There has been no suspicious interval change. IMPRESSION: 1. No mammographic evidence of malignancy. 2. Recommend routine screening mammography in one year. BI-RADS Category 1: Negative Reviewed, dictated and finalized at location A.
== END ==
PROVIDERS: PCP Nurse Practitioner; Visit Provider Nurse Practitioner
DX: Z12.31 Encounter for screening mammogram for malignant neoplasm of breast (principal)
CPT/HCPCS: 77063; 77067

== ENCOUNTER 2023-02-23 19:18 | Emergency (ER) | payer OTHER, SELFPAY ==
[2023-02-23] VITALS (19 sets, daily range): BP systolic 114–141; BP diastolic 72–93; PULSE 73–91; RESP 15–21; TEMP 36.5; O2SAT 99–100
--- NOTE | 2023-02-23 20:16 | ED.FEMALEGU ---
HPI - Female Genitourinary General Chief complaint: Urogenital-Female Stated complaint: UTI? Time Seen by Provider: 02/23/23 19:34 History of Present Illness HPI Narrative: Patient is a 47-year-old female presenting with concerns for UTI. Patient states that she was treated for a UTI at the beginning of last month. States that she was having right flank pain at that time. States that it seemed to improve but then the symptoms returned. She saw her PCP about 10 days ago and they repeated a UA and got a CAT scan and everything looked okay. Patient states that she continued to have right-sided pain so she went to urgent care earlier this week who told her that she still has a UTI. They started her on penicillin and she states that her symptoms have continued. She is concerned that she still has a bladder infection. No fevers, chest pain, shortness of breath, vomiting, diarrhea. Related Data Home Medications Medication Instructions Recorded Confirmed ergocalciferol (vitamin D2) 1,250 50,000 unit PO WEEKLY 11/21/20 09/27/22 mcg (50,000 unit) capsule levothyroxine 100 mcg tablet 100 mcg PO DAILY 03/26/22 09/27/22 (Synthroid) losartan 25 mg tablet 25 mg PO DAILY 06/24/22 09/27/22 metformin 500 mg tablet,extended 50 mg PO DAILY 09/03/22 09/27/22 release 24 hr semaglutide 0.25 mg or 0.5 mg (2 See Rx Instructions .Route 09/03/22 09/27/22 mg/1.5 mL) subcutaneous pen .COMPLEX rx injector (Ozempic) Allergies Allergy/AdvReac Type Severity Reaction Status Date / Time No Known Allergies Allergy Mild Verified 02/23/23 20:04 Review of Systems Review of Systems: All systems reviewed & are unremarkable except as noted in HPI and below PMFSH Past Medical History Medical History Anxiety and depression Migraine UTI (urinary tract infection) Surgical History Surgical History History of cholecystectomy History of gastric bypass History of laparoscopic adjustable gastric banding Family History Family History Father Diabetes mellitus Social History Social History Smoking status: Never smoker Alcohol intake: never Substance use: never Substance use type: does not use Living arrangements: alone Gender identity (if verbalized by the patient): Female Spiritual care concerns: No Exam Narrative: GENERAL: Well-appearing, well-nourished, and in no acute distress. HEAD: Normocephalic, atraumatic. EYES: PERRLA and EOMI. ENT: Nares clear, no rhinorrhea or epistaxis. Mucous membranes moist. NECK: Supple. CHEST: Clear to auscultation. No respiratory distress. HEART: Regular rate and rhythm. ABDOMEN: Soft, nontender, nondistended, no CVA tenderness EXTREMITIES: Normal range of motion. No edema. SKIN: Warm, dry, no rash. NEURO: No focal deficits. Alert and oriented x3. PSYCH: Normal mood and affect. Course Vital Signs Vital signs: Vital Signs Temperature 97.7 F 02/23/23 19:19 Pulse Rate 91 02/23/23 19:19 Respiratory Rate 18 02/23/23 19:19 Blood Pressure 141/93 H 02/23/23 19:19 Pulse Oximetry 100 02/23/23 19:19 Oxygen Delivery Room Air 02/23/23 19:19 Temperature 97.7 F 02/23/23 19:19 Pulse Rate 81 02/23/23 22:01 Respiratory Rate 17 02/23/23 22:01 Blood Pressure 121/72 02/23/23 23:00 Pulse Oximetry 99 02/23/23 23:45 Oxygen Delivery Room Air 02/23/23 19:19 MDM - Female Genitourinary MDM Narrative Medical decision making narrative: Patient is a 47-year-old female presenting with concerns for persistent UTI. Vital stable. Patient is well-appearing and in no acute distress. Abdomen is soft and benign. No CVA tenderness. Do not feel that repeat imaging is warranted at this time. Her vitals are within normal limits. Afeb
[2023-02-23 20:55] LABS: Basophils Absolute Auto 0.1 K/mm3 (0.0-0.1); Basophils Percent Auto 0.4 % (0.2-1.2); Eosinophils Absolute Auto 0.2 K/mm3 (0-0.3); Eosinophils Percent Auto 1.2 % (0-4.4); Hematocrit 41.3 % (37.0-47.0); Hemoglobin 13.1 g/dL (12.0-15.0); Immature Granulocyte Absolute 0.03 K/mm3 (0.00-0.031); Immature Granulocyte Percent A 0.2 % (0-0.5); Lymphocytes Absolute Auto 4.27 K/mm3 (0.9-3.2); Lymphocytes Percent Auto 35.1 % (18.3-44.2); Mean Corpuscular HGB Conc 31.7 g/dl (32-36); Mean Corpuscular Volume 91.4 fl (80-100); Monocytes Absolute Auto 0.7 K/mm3 (0.1-0.6); Monocytes Percent Auto 6.1 % (2.6-8.5); Neutrophils Absolute Auto 6.9 K/mm3 (1.3-6.7); Platelet Count Result 253 k/mm3 (150-375); Red Blood Count 4.52 M/mm3 (4.2-5.4); Red Cell Distribution Width 13.8 % (11.5-14.5); White Blood Count 12.2 K/mm3 (4.5-10.0)
[2023-02-23 21:01] LABS: Appearance Urine Clear (Clear); Bacteria Urine None Seen /hpf; Bilirubin Urine Negative (Negative); Blood Urine Negative (Negative); Color Urine Yellow (Yellow); Glucose Urine UA Negative (Negative); Ketones Urine Negative (Negative); Leukocyte Esterase Ur 2+ LEU/UL (Negative); Nitrate Urine Negative (Negative); Non Pathogenic Casts 0-2; Protein Urine Negative (Negative); RBC Urine 0-2 /hpf (0-2); Specific Grav Ur 1.014 (1.001-1.035); Squamous Epithelial Cell Urine Few /hpf (Few); Urobilinogen Urine 0.2 mg/dL (<2.0); pH Urine 5.5 (5.0-9.0)
[2023-02-23 21:03] LABS: Add Urine Microscopic? YES; Pregnancy On Board Control Positive; Urine Pregnancy Test Negative
[2023-02-23 21:08] LABS: Alanine Aminotransferase 19 U/L (6-35); Albumin Level 3.9 g/dL (3.5-5.1); Alkaline Phosphatase 58 U/L (38-126); Anion Gap 8 mmol/L (8-16); Aspartate Amino Transferase 19 U/L (14-36); Bilirubin,Total 0.3 mg/dL (0.2-1.3); Blood Urea Nitrogen 15 mg/dL (7-17); Calcium 8.9 mg/dL (8.4-10.2); Carbon Dioxide 25 mmol/L (22-30); Chloride 104 mmol/L (98-107); Estimated CRCL calculation 58 ml/min; Estimated Glomerular Filt Rate 53; Glucose 78 mg/dL (65-110); Lipase 135 U/L (23-300); Sodium 137 mmol/L (137-145)
[2023-02-23] MEDS: SODIUM CHLORIDE 0.9% IV 1,000 ML 999 ML IV CONT (21:20)
== END 2023-02-23 23:59 | disposition home or self-care (01) ==
PROVIDERS: Emergency Provider Emergency Medicine
DX: N39.0 Urinary tract infection, site not specified (principal); F41.9 Anxiety disorder, unspecified; F32.A Depression, unspecified; Z87.440 Personal history of urinary (tract) infections
CPT/HCPCS: 36415; 80053; 81001; 81025; 83690; 85025; 87086; 96365; 99284; J0696; J7030

== ENCOUNTER 2023-06-17 15:14 | Outpatient (CLI) | payer OTHER, SELFPAY ==
[2023-06-17 15:25] LABS: Basophils Percent Auto 0.4 % (0.2-1.2); Eosinophils Absolute Auto 0.1 K/mm3 (0-0.3); Eosinophils Percent Auto 0.9 % (0-4.4); Hematocrit 40.3 % (37.0-47.0); Hemoglobin 12.7 g/dL (12.0-15.0); Immature Granulocyte Absolute 0.02 K/mm3 (0.00-0.031); Immature Granulocyte Percent A 0.2 % (0-0.5); Lymphocytes Absolute Auto 3.39 K/mm3 (0.9-3.2); Lymphocytes Percent Auto 34.6 % (18.3-44.2); Mean Corpuscular HGB Conc 31.5 g/dl (32-36); Mean Corpuscular Hemoglobin 29.7 pg (26-34); Mean Corpuscular Volume 94.2 fl (80-100); Monocytes Absolute Auto 0.7 K/mm3 (0.1-0.6); Neutrophils Absolute Auto 5.6 K/mm3 (1.3-6.7); Neutrophils Percent Auto 56.9 % (45.5-73.1); Platelet Count Result 282 k/mm3 (150-375); Red Blood Count 4.28 M/mm3 (4.2-5.4); White Blood Count 9.8 K/mm3 (4.5-10.0)
[2023-06-17 17:00] LABS: Iron 47 ug/dL (37-170)
[2023-06-17 17:09] LABS: Percent Iron Saturation 15 % (20-50)
[2023-06-17 18:17] LABS: Folic Acid 16.1 ng/mL (2.76->20)
== END 2023-06-17 15:15 | disposition home or self-care (01) ==
LOC: ANHLAB 15:15
PROVIDERS: Visit Provider Internal Medicine Hematology & Oncology
DX: D64.9 Anemia, unspecified (principal)
CPT/HCPCS: 36415; 82607; 82728; 82746; 83540; 83550; 85025

== ENCOUNTER 2023-09-18 14:58 | Outpatient (CLI) | payer OTHER, SELFPAY ==
[2023-09-18 15:11] LABS: Basophils Percent Auto 0.3 % (0.2-1.2); Eosinophils Absolute Auto 0.1 K/mm3 (0-0.3); Eosinophils Percent Auto 0.7 % (0-4.4); Hematocrit 39.2 % (37.0-47.0); Hemoglobin 12.4 g/dL (12.0-15.0); Immature Granulocyte Absolute 0.03 K/mm3 (0.00-0.031); Immature Granulocyte Percent A 0.3 % (0-0.5); Lymphocytes Absolute Auto 3.71 K/mm3 (0.9-3.2); Lymphocytes Percent Auto 34.4 % (18.3-44.2); Mean Corpuscular HGB Conc 31.6 g/dl (32-36); Mean Corpuscular Volume 91.6 fl (80-100); Mean Platelet Volume 10.8 fl (7.4-10.4); Monocytes Absolute Auto 0.7 K/mm3 (0.1-0.6); Monocytes Percent Auto 6.4 % (2.6-8.5); Neutrophils Absolute Auto 6.2 K/mm3 (1.3-6.7); Neutrophils Percent Auto 57.9 % (45.5-73.1); Platelet Count Result 280 k/mm3 (150-375); Red Blood Count 4.28 M/mm3 (4.2-5.4); Red Cell Distribution Width 13.7 % (11.5-14.5); White Blood Count 10.8 K/mm3 (4.5-10.0)
[2023-09-18 16:28] LABS: Iron 63 ug/dL (37-170)
[2023-09-18 16:42] LABS: Percent Iron Saturation 18 % (20-50)
[2023-09-18 16:49] LABS: Vitamin D 25 Hydroxy 79.6 ng/mL
[2023-09-18 17:36] LABS: Folic Acid 16.1 ng/mL (2.76->20)
== END 2023-09-18 14:59 | disposition home or self-care (01) ==
LOC: ANHLAB 14:59
PROVIDERS: Nurse Practitioner Family; Obstetrics & Gynecology Gynecology; Visit Provider Internal Medicine Hematology & Oncology
DX: D64.9 Anemia, unspecified (principal)
CPT/HCPCS: 36415; 82306; 82607; 82728; 82746; 83540; 83550; 85025

== ENCOUNTER 2024-02-06 09:56 | Outpatient (CLI) | payer OTHER, SELFPAY ==
--- NOTE | ~2024-02-06 | MM_ITS ---
EXAMINATION: MM screening hilda BI w dar HISTORY: Screening TECHNIQUE: Craniocaudal and mediolateral oblique 3-D tomosynthesis images were obtained and synthetic 2-D images were generated. CAD analysis was submitted and interpreted. COMPARISON: Comparison to multiple prior studies sequentially, with oldest reviewed study dated 05/13. BREAST PARENCHYMAL COMPOSITION: Not dense: There are scattered areas of fibroglandular density. FINDINGS: There is no evidence of suspicious mass, calcification, or architectural distortion to sugg est malignancy in either breast. There has been no suspicious interval change. IMPRESSION: 1. No mammographic evidence of malignancy. 2. Recommend routine screening mammography in one year. BI-RADS Category 1: Negative Reviewed, dictated and finalized at location B.
== END 2024-02-06 09:57 ==
LOC: MICIMG 09:57
PROVIDERS: PCP Obstetrics & Gynecology Gynecology; Visit Provider Obstetrics & Gynecology Gynecology
DX: Z12.31 Encounter for screening mammogram for malignant neoplasm of breast (principal)
CPT/HCPCS: 77063; 77067

== ENCOUNTER 2024-06-16 15:11 | Outpatient (CLI) | payer OTHER, SELFPAY ==
[2024-06-16 15:24] LABS: Hematocrit 42.5 % (37.0-47.0); Hemoglobin 13.6 g/dL (12.0-15.0); Mean Corpuscular Hemoglobin 29.1 pg (26-34); Mean Corpuscular Volume 90.8 fl (80-100); Mean Platelet Volume 10.6 fl (7.4-10.4); Platelet Count Result 284 k/mm3 (150-375); Red Blood Count 4.68 M/mm3 (4.2-5.4); Red Cell Distribution Width 12.6 % (11.5-14.5); White Blood Count 10.3 K/mm3 (4.5-10.0)
[2024-06-16 19:47] LABS: Iron 79 ug/dL (37-170)
[2024-06-16 19:59] LABS: Percent Iron Saturation 22 % (20-50)
[2024-06-16 21:28] LABS: Folic Acid > 20.0 ng/mL (2.76->20)
== END 2024-06-16 15:12 | disposition home or self-care (01) ==
LOC: ANHLAB 15:13
PROVIDERS: PCP Obstetrics & Gynecology Gynecology; Visit Provider Internal Medicine Hematology & Oncology
DX: D64.9 Anemia, unspecified (principal)
CPT/HCPCS: 36415; 82607; 82728; 82746; 83540; 83550; 85027

== ENCOUNTER 2025-02-07 12:05 | Outpatient (CLI) | payer OTHER, SELFPAY ==
--- NOTE | ~2025-02-07 | MM_ITS ---
EXAMINATION: MM screening hilda BI w dar HISTORY: Screening TECHNIQUE: Craniocaudal and mediolateral oblique 3-D tomosynthesis images were obtained and synthetic 2-D images were generated. CAD analysis was submitted and interpreted. COMPARISON: Comparison to multiple prior studies sequentially, with oldest reviewed study dated 05/18. BREAST PARENCHYMAL COMPOSITION: Not dense: There are scattered areas of fibroglandular density. FINDINGS: There is a mass in the periareolar location of the left breast. The right breast is stable without evidence for malignancy. IMPRESSION: 1. Small left periareolar mass. 2. Additional mammographic views and possible breast ultrasound are recommended. BI-RADS Category 0: Incomplete: Needs additional imaging evaluation. Reviewed, dictated and finalized at location A. IMPRESSION: 1. Small left periareolar mass. 2. Additional mammographic views and possible breast ultrasound are recommended . BI-RADS Category 0: Incomplete: Needs additional imaging evaluation.
== END 2025-02-07 12:06 | disposition home or self-care (01) ==
LOC: MICIMG 12:06
PROVIDERS: PCP Nurse Practitioner; Visit Provider Nurse Practitioner
DX: Z12.31 Encounter for screening mammogram for malignant neoplasm of breast (principal); R92.8 Other abnormal and inconclusive findings on diagnostic imaging of breast
CPT/HCPCS: 77063; 77067

== ENCOUNTER 2025-02-16 12:55 | Outpatient (CLI) | payer OTHER, SELFPAY ==
--- NOTE | ~2025-02-16 | MMUS_ITS ---
EXAMINATION: MM diagnostic hilda LT w dar, US breast LT limited HISTORY: Left breast mass TECHNIQUE: Additional 3-D tomosynthesis images of the left breast were performed and synthetic 2-D im ages were generated. CAD analysis was submitted and interpreted. High resolution limited left breast ultrasound was performed. COMPARISON: 02/07/2025, 02/06/2024, 02/03/2023 BREAST PARENCHYMAL COMPOSITION:Not Dense. There are scattered areas of fibroglandular density. FINDINGS: MAMMOGRAPHIC FINDINGS: Spot compression views confirm a persistent 7 mm ovoid mass at the left subareolar region, more consp icuous than on prior exams. ULTRASOUND: There is an 8 x 6 x 3 mm simple cyst at the left breast 11:00 subareolar region. No other sonographic abnormality seen in the region scanned. IMPRESSION: No evidence for malignancy. 8 mm simple cyst at the 11:00 left breast subareolar region. BI-RADS Category 2: Benign finding(s). Reviewed, dictated and finalized at location . IMPRESSION: No evidence for malignancy. 8 mm simple cyst at the 11:00 left breast subareolar region. BI-RADS Category 2: Benign finding(s).
== END 2025-02-16 12:56 | disposition home or self-care (01) ==
LOC: ANHIMG 12:58
PROVIDERS: Visit Provider Obstetrics & Gynecology Gynecology
DX: R92.8 Other abnormal and inconclusive findings on diagnostic imaging of breast (principal); N60.02 Solitary cyst of left breast
CPT/HCPCS: 76642; 77061; 77065; G0279

== ENCOUNTER 2025-03-16 10:06 | Outpatient (CLI) | payer OTHER, SELFPAY ==
--- OUTSIDE RECORDS SUMMARY | 2025-03-16 10:11 | XMS_ITS | Referral Summary ---
Author Organization [facility] Address [address] [place] [id number] Care Team Providers Care Cartridge Filler Name Role Phone Karla Weston MD Primary Care Provider + Encounters Date Type Department Care Team Description 01/21/2025 Results Follow-Up [address] [phone] Karla Weston MD Lipid panel, Hepatitis C antibody Blood, Vitamin D 25 hydroxy, Additional followed-up results: 3 01/20/2025 1:30 PM CDT Lab [facility] at the [address] [phone] Preventative health care; Need for hepatitis C screening test; Vitamin D deficiency; Essential hypertension 01/20/2025 1:00 PM CDT Office Visit [address] [phone] Karla Weston MD Preventative health care (Primary Dx); Essential hypertension; Acquired hypothyroidism; Vitamin D deficiency; Need for hepatitis C screening test; Need for Tdap vaccination 01/05/2025 Results Follow-Up [facility] [address], [place] [address] Ignacio Felder MD Hemoglobin A1c, TSH 12/30/2024 2:40 PM CDT Lab [address] [phone] Insulin resistance; Acquired hypothyroidism 12/30/2024 2:00 PM CDT Office Visit [facility] [id number] [place] [address] [address] [place] [address] Ignacio Felder MD Acquired hypothyroidism (Primary Dx); Insulin resistance; Class 1 obesity due to excess calories without serious comorbidity with body mass index (BMI) of 33.0 to 33.9 in adult from Last 3 Months Allergies Active Allergy Reactions Criticality Noted Date Comments Colloidal Oatmeal Itching High 02/01/2020 Medications cetirizine (ZyrTEC) 10 mg tablet daily Active multivitamin capsule daily Active cholecalciferol (Vitamin D3) 2000 unit capsule 2 Active Danni Fe 1.5/30, 28, 1.5 mg-30 mcg (21)/75 mg (7) per tablet 2 Active ascorbic acid (VITAMIN C) 1,000 mg tablet Take 1 tablet (1,000 mg total) by mouth daily Active liothyronine (CYTOMEL) 5 mcg tablet Take 1 tablet (5 mcg total) by mouth daily 90 tablet 3 4 Active levothyroxine (SYNTHROID) 100 mcg tablet Take 1 tablet (100 mcg total) by mouth financial auditor before breakfast 90 tablet 3 5 09/07/19 26 Active losartan (COZAAR) 100 mg tabletIndications :Essential hypertension TAKE 1 TABLET DAILY 90 tablet 3 5 Active Zepbound 2.5 mg/0.5 mL solution vialIndications:C lass 1 obesity due to excess calories without serious comorbidity with body mass index (BMI) of 33.0 to 33.9 in adult INJECT 0.5 ML (2.5 MG) UNDER THE SKIN ONCE WEEKLY (0.5ML= 50 UNITS) 2 mL 6 5 Active metFORMIN XR (GLUCOPHAGE XR) 500 mg 24 hr tabletIndications :Insulin resistance Take 1 tablet (500 mg total) by mouth 2 (two) times a day 180 tablet 3 5 Active Active Problems Problem Noted Date Diagnosed Date Class 1 obesity due to exces s calories with body mass index (BMI) of 33.0 to 33.9 in adult 11/18/2023 Assessment & Plan (11/18/2023 1:37 PM CDT): Diet and exercise Start phentermine Vitamin D deficiency 11/17/2023 Assessment & Plan (01/20/2025 1:02 PM CDT): Due for lab, will adjust supplement as needed. Assessment & Plan (06/25/2024 3:49 PM CDT): Chronic, stable. Update 25 hydroxy vitamin-D level. Continue vitamin-D supplementation Assessment & Plan (11/17/2023 11:12 AM CDT): Due for lab Raynaud's phenomenon without gangrene 11/17/2023 Assessment & Plan (11/17/2023 11:12 AM CDT): Discussed prevention, if needed could consider starting on CCB to help with both raynaud as well as hypertension. Insulin resistance 05/23/2023 Assessment & Plan (06/25/2024 3:50 PM CDT): Patient encouraged to continue working on diet and exercise Continue metformin I provided the patient with samples of Mounjaro and also prescription for Zep bound was sent ( the patient might be able to afford to pay some ) Assessment & Plan (11/18/2023 1:35 PM CDT): Chronic, stable Diet and exercise. Continue metformin Assessment & Plan (05/23/2023 1:01 PM CDT): Diet and exercise as the cornerstone of the treatment was explained and and discussed. Continue metformin Continue Ozempic. I provided the patient with 2 pens of 2 mg Ozempic for her to take 1 mg weekly Prediabetes 05/28/2022 Assessment & Plan (11/17/2023 11:12 AM CDT): Due for A1c Assessment & Plan (05/28/2022 1:59 PM CDT): Will update A1c levels but recent A1c was 5.7% Counseled on low gi diet and exercise Essential hypertension 05/14/2022 Assessment & Plan (01/20/2025 1:01 PM CDT): Stable well controlled on current regimen, will send in refills as needed Assessment & Plan (11/17/2023 11:11 AM CDT): Stable well controlled on current regimen, will send in refills as needed Assessment & Plan (07/09/2022 12:57 PM IRRIGATOR): Hypertensive in office and at home, will plan to increase losartan to 50mg. Will have patient keep blood pressure log for the next two weeks and send back results. Will determine at that time if antihypertensive is needed. Assessment & Plan (05/28/2022 1:51 PM CDT): On losartan 25 mg that endo started Discussed going up to 50 mg dose if bp at home consistently higher than 130/80 Encouraged pt to monitor BP intermittently at home and report back with values Advised lifestyle measures for improving BP inc regular exercise, healthy diet, salt restriction and weight loss Bring BP cuff at next visit Hypothyroidism 11/29/2021 Assessment & Plan (01/20/2025 1:01 PM CDT): Follows with endocrinology, stable Assessment & Plan (06/25/2024 3:49 PM CDT): Chronic, stable. Update TFTs. Continue levothyroxine and Cytomel. Assessment & Plan (11/18/2023 1:35 PM CDT): Chronic, well-controlled Continue combination therapy with levothyroxine 100 mcg daily and liothyronine 5 mcg daily Assessment & Plan (11/17/2023 11:12 AM CDT): Stable, follows with endocrinology. Assessment & Plan (05/23/2023 1:00 PM CDT): Goal of treatment is to normalize TSH. This was explained to the patient We will update TFTs, including TSH, free T4 and free T3 Continue levothyroxine and cytomel. We will make adjustments to the dose of the above medications, if indicated Assessment & Plan (05/28/2022 1:51 PM CDT): On levothyroxine 100 mcg Will update labs Elevated cortisol level 11/09/2013 Assessment & Plan (11/18/2023 1:36 PM CDT): 1 mg dexamethasone suppression test Assessment & Plan (05/28/2022 1:51 PM CDT): Is being worked up for this by tire fabric impregnating range tender, Dr Lynch Morbid obesity 10/04/2009 Assessment & Plan (05/28/2022 1:51 PM CDT): S/p gastric sleeve 2011 Counseled on diet and role of regular exercise Resolved Problems Problem Noted Date Diagnosed Date Resolved Date Fatigue 05/28/2022 11/17/2023 Assessment & Plan (05/28/2022 1:53 PM CDT): Recently had low iron levels without any anemia and is following with heme. Will update labs for accuracy and if she has NOREEN, will refer for scopes Will check labs per below for other causes and is also undergoing a work up with endocrinology given elevated cortisol levels Blood iron decreased compare d with prior measurement 05/28/2022 11/17/2023 Assessment & Plan (05/28/2022 1:56 PM CDT): Update labs and FIT tests Discussed need for scopes if FIT + or labs suggestive of Iron def anemia. Avoid NSAIDs and ASA She is also s/p gastric sleeve surg Encounter for preventive health examination 05/26/2022 05/28/2022 Arthralgia of ankle 03/01/2015 05/28/20 Urinary tract infection 01/25/2015 10/0 11/2021 Urticaria, unspecified 02/16/201405/28 Overview (12/05/2017): Impression: Acute. This seems to be improving on current regiimen. I suspect either food allery or viral etiology. Continue regimen. Add Benadryl nightly. Check labs. Refer to Cable Puller. Leukocytosis 02/16/2014 05/28/2022 Right upper quadrant abdominal pain 12/06/2013 05/28/2022 Overview (12/05/2017): Impression: Mild. Nonsurgical exam. Check labs. [place] diet. Observe. Immunizations Immunization Administration Dates Next Due Influenza, Quadrivalent, Rashida l Culture-based MDCK, Antibiotic Free, Intramuscular 08/25/2020 Moderna SARS-CoV-2 Monovalent Vaccination (12+ Y RS) 08/21/2021 Tdap 01/20/2025 ZOSTER Recombinant 04/24/2024,02/16/2024 Social History Tobacco Use Types Packs/Day Years Used Date Smoking Tobacco: Never Smokeless Tobacco: Never Tobacco Cessation:Counseling Given: Not Answered AUDIT-C Answer Date Recorded Q1: How often do you have a drink containing alc ohol? 2-4 times a month 01/20/2025 Q2: How many drinks containi ng alcohol do you have on a typical day when you are drinking? 1 or 2 01/20/2025 Q3: How often do you have si x or more drinks on one occasion? Never 01/20/2025 PHQ-2 Answer Date Recorded PHQ-2 Total Score (If total score is 3 or more points, staff should administer the PHQ-9) 0 01/20/2025 Comments Unknown Sex and Gender Information Value Date Recorded Sex Assigned at Not on file Legal Sex Female 4:41 AM IRRIGATOR Gender Identity Not on file Sexual Orientation Straight 06/25/2024 2: 48 PM CDT Last Filed Vital Signs Vital Sign Reading Time Taken Comments Blood Pressure 118/80 01/20/2025 12:33 PM CDT Pulse 73 01/20/2025 12:33 PM CDT Temperature - - Respiratory Rate 17 06/25/2024 2:49 PM CDT Oxygen Saturation 99% 01/20/2025 12:33 PM CDT Inhaled Oxygen Concentration - - Weight 83.7 kg (184 lb 9.6 oz) 01/20/2025 12:33 PM CDT Height 157.5 cm (5' 2.01) 01/20/2025 12:33 PM C DT Body Mass Index 33.75 01/20/2025 12:33 PM CDT Plan of Treatment Not on file Procedures Procedure Name Priority Date/Time Associated Diagnosis Comments EGFR Routine 01/20/2025 1:06 PM CDT Preventative health care Essential hypertension CBC WITHOUT DIFFERENTIAL Routine 01/20/2025 1:06 PM CDT Preventative health care COMPREHENSIVE METABOLIC PANEL Routine 01/20/2025 1:06 PM CDT Preventative health care Essential hypertension VITAMIN D 25 HYDROXY Routine 01/20/2025 1:06 PM CDT Preventative health care Vitamin D deficiency LIPID PANEL Routine 01/20/2025 1:06 PM CDT Preventative health care HEPATITIS C ANTIBODY Routine 01/20/2025 1:06 PM CDT Preventative health care Need for hepatitis C screening test T4, FREE Routine 12/30/2024 2:51 PM CDT Acquired hypothyroidism TSH Routine 12/30/2024 2:51 PM CDT Acquired hypothyroidism HEMOGLOBIN A1C Routine 12/30/2024 2:51 PM CDT Insulin resistance from Last 3 Months Results * eGFR (01/20/2025 1:06 PM CDT) eGFR 81 >=60 mL/min/1. 73 m2 Comment: Interpretive Data Reference Interval Normal >/= 90 mL/min/1.73m2 Mildly decreased* 60 - 89 mL/min/1.73m2 Mildly to moderately decreased 45 - 59 mL/min/1.73m2 Moderately to severely decreased 30 - 44 mL/min/1.73m2 Severely decreased 15 - 29 mL/min/1.73m2 Kidney Failure < 15 mL/min/1.73m2 *Relative to young adult level Estimated glomerular filtration rate is determined by the 2020 CKD-EPI equation recommended by the National Kidney Foundation (A Unifying Approach to GFR Estimation: Recommendations of the NKF-ASK Task Force on Reassessing the Inclusion of Race in Diagnosing Kidney Disease, JASN 2020). The CKD-EPI equation should not be used for patients with unstable renal function and has not been validated in children and those over 70. Current interpretive data was last reviewed 2021. Blood 01/20/2025 1:06 PM CDT 01/20/2025 5:47 PM CDT Karla Weston MD LAB BLOOD ORDERABLES Fin al Result Performing Organization Address [facility] Co de Phone Number [facility] [employer] [address] * Hepatitis C antibody Blood (01/20/2025 1:06 PM CDT) Hep C Ab Nonreactive Nonreactive Comment:Antibodies to HCV no t detected. Does NOT exclude the possibility of recent exposure to HCV. Current interpretive data was last revised on 22 Blood 01/20/2025 1:06 PM CDT 01/20/2025 5:34 PM CDT Result [facility] Karla Weston MD LAB MICROBIOLOGY - GENER AL ORDERABLES Final Result Performing Organization Address [facility] de Phone Number [facility] [employer] [address] * Vitamin D 25 hydroxy (01/20/2025 1:06 PM CDT) Vitamin D 25-OH 44 30 - 80 ng/mL Blood 01/20/2025 1:06 PM CDT 01/20/2025 5:34 PM CDT Result [facility] Karla Weston MD LAB BLOOD ORDERABLES Fin al Result Performing Organization Address [facility] Co de Phone Number [facility] Department [place] [address] * (ABNORMAL) CBC without differential (01/20/2025 1:06 PM CDT) [facility] WBC 9.75 3.80 - 9.90 K/cumm Hgb 12.8 11.9 - 15.5 g/dL [facility] Hct 40.4 35.6 - 45.5 % [facility] Plt 229 150 - 400 K/cumm [facility] MPV 12.0 9.1 - 12.3 fL [facility] RBC 4.45 3.90 - 5.20 M/cumm [facility] MCV 90.8 81.3 - 96.4 fL [facility] MCH 28.8 27.1 - 33.3 pg [facility] MCHC 31.7(L) 32.3 - 35.7 g/dL [facility] RDW CV 13.4 11.1 - 14.9 % [facility] RDW SD 45.0 35.7 - 48.1 fL [facility] NRBC abs 0.00 0.00 - 0.01 K/cumm [facility] Blood 01/20/2025 1:06 PM CDT 01/20/2025 5:34 PM CDT Karla Weston MD LAB BLOOD ORDERABLES Fin al Result [facility] Department [place] [address] * Lipid panel (01/20/2025 1:06 PM CDT) [facility] Cholesterol 181 30 - 199 mg/dL Comment: Interpretive Data Ages < or = 19 years Acceptable: <170 mg/dL Borderline high: 170-199 mg/dL High: >or= 200 mg/dL Ages > or = 20 years Desirable: <200 mg/dL Borderline high: 200-239 mg/dL High: >or= 240 mg/dL Literature References: 1. Expert Panel on Integrated Guidelines for Cardiovascular Health and Risk Reduction in Children and Adolescents. Pediatrics 2011;128:S213 2. NCEP Expert Panel. Circulation 2004;110:227 Current Interpretive Data was last revised on 2018. Triglycerides 136 <=149 mg/dL [facility] Comment: Interpretive Data Ages < or = 9 years Acceptable: <75 mg/dL Borderline high: 75-99 mg/dL High: >or= 100 mg/dL Ages 10 to 20 years Acceptable: <90 mg/dL Borderline high: 90-129 mg/dL High: >or= 130 mg/dL Ages > or = 20 years Desirable: <150 mg/dL Borderline high: 150-199 mg/dL High: 200-499 mg/dL Very high: >or= 499 mg/dL Literature References: 1. Expert Panel on Integrated Guidelines for Cardiovascular Health and Risk Reduction in Children and Adolescents. Pediatrics 2011;128:S213 2. NCEP Expert Panel. Circulation 2004;110:227 Current Interpretive Data was last revised on 2018. HDL 63 >=40 mg/dL [facility] Comment: Interpretive Data Ages < or = 19 years Acceptable: >45 mg/dL Borderline low: 40-45 mg/dL Low: <40 mg/dL Ages > or = 20 years Desirable: >or= 60 mg/dL Low: <40 mg/dL Literature References: 1. Expert Panel on Integrated Guidelines for Cardiovascular Health and Risk Reduction in Children and Adolescents. Pediatrics 2011;128:S213 2. NCEP Expert Panel. Circulation 2004;110:227 Current Interpretive Data was last revised on 2018. LDL, calculated 94 <=129 mg/dL [facility] Comment: Interpretive Data Ages < or = 19 years Acceptable: <110 mg/dL Borderline high: 110-129 mg/dL High: >or= 130 mg/dL Ages > or = 20 years Optimal: <100 mg/dL Near optimal: 100-129 mg/dL Borderline high: 130-159 mg/dL High: >160 mg/dL Calculated using the Manuel LDL-C estimating equation. This equation was implemented on 2024. Prior to this date LDL-C was estimated using the Friedewald equation. Literature References: 1. Expert Panel on Integrated Guidelines for Cardiovascular Health and Risk Reduction in Children and Adolescents. Pediatrics 2011;128:S213 2. NCEP Expert Panel. Circulation 2004;110:227 3. Manuel Elaine et al. RAZA Cardiol. 2020 December 23;5(5):540-548. doi: 10.1001/jamacardio.2020.0013 Current Interpretive Data was last revised on 2024. Non-HDL Cholesterol 118 mg/dL [facility] Comment: Interpretive Data Ages < or = 19 years Acceptable: <120 mg/dL Borderline high: 120-144 mg/dL High: >145 mg/dL Ages > or = 20 years When triglycerides are >200 mg/dL, Non-HDL cholesterol is a secondary target of therapy with treatment goals that are 30 mg/dL greater than the LDL cholesterol target. Literature References: 1. Expert Panel on Integrated Guidelines for Cardiovascular Health and Risk Reduction in Children and Adolescents. Pediatrics 2011;128:S213 2. NCEP Expert Panel. Circulation 2004;110:227 Current Interpretive Data was last revised on 2018. Chol/HDL ratio 3 [facility] Blood 01/20/2025 1:06 PM CDT 01/20/2025 5:34 PM CDT Karla Weston MD LAB BLOOD ORDERABLES Fin al Result [facility] Department [place] [address] * Comprehensive metabolic panel (01/20/2025 1:06 PM CDT) Sodium 145 135 - 145 mmol/L Potassium, pl 4.6 3.3 - 4.9 mmol/L [facility] Chloride 106 97 - 110 mmol/L [facility] CO2 29 22 - 32 mmol/L [facility] Anion gap 10 2 - 15 mmol/L [facility] BUN 14 6 - 25 mg/dL [facility] Creatinine 0.87 0.60 - 1.10 mg/dL [facility] Glucose See Comment 70 - 199 mg/dL [facility] Comment: Credited: Specimen too old Interpretive Data Fasting glucose >/= 126 mg/dl is diagnostic for diabetes. Fasting is defined as no caloric intake for at least 8 hours. Fasting glucose between 100 mg/dl to 125 mg/dl is diagnostic of prediabetes. In a patient with classic symptoms of hyperglycemia or hyperglycemic crisis, a random glucose >/= 200 mg/dl is diagnostic for diabetes. In the absence of unequivocal hyperglycemia, results should be confirmed by repeat testing. The classification and Diagnosis of Diabetes Diabetes Care 2021; 46: S19-S40. Current interpretive data was last revised 2022. Calcium 9.5 8.5 - 10.3 mg/dL [facility] Bilirubin, total 0.4 0.1 - 1.2 mg/dL [facility] Protein, pl 6.8 6.5 - 8.5 g/dL [facility] Albumin 3.7 3.5 - 5.0 g/dL [facility] Alk phos 73 40 - 130 Units/L [facility] ALT 13 7 - 45 Units/L [facility] AST 22 10 - 45 Units/L [facility] Blood 01/20/2025 1:06 PM CDT 01/20/2025 5:34 PM CDT Karla Weston MD LAB BLOOD ORDERABLES Fin al Result [facility] Department [place] [address] * (ABNORMAL) TSH (12/30/2024 2:51 PM CDT) Thyroid Stimulating Hormone 0.24(L) 0.30 - 4.20 mcIUnit/mL Blood 12/30/2024 2:51 PM CDT 12/30/2024 6:36 PM CDT Ignacio Felder MD LAB BLOOD ORDERABLES Final Resul t [facility] [id number] [address] Department [place] [address] * T4, free (12/30/2024 2:51 PM CDT) Free T4 1.32 0.90 - 1.70 ng/dL Blood 12/30/2024 2:51 PM CDT 12/30/2024 6:36 PM CDT Ignacio Felder MD LAB BLOOD ORDERABLES Final Resul t Performing Organization Address City/[facility] [place] [address] [address] Department [place] [employer] [address] * Hemoglobin A1c (12/30/2024 2:51 PM CDT) Hgb A1C 5.2 4.0 - 5.6 % Estimated Average Glucose 103 mg/dL [place] Comment: The ADA recommends reporting an estimated Average Glucose (eAG) with all Hemoglobin A1c results using the equation derived from a study of 507 normal and diabetic adults. Minority populations were underrepresented and children were not included. (Diabetes Care 31:1036-1163, 2008). The eAG is not equivalent to a fasting glucose. Blood 12/30/2024 2:51 PM CDT 12/30/2024 6:36 PM CDT Ignacio Felder MD LAB BLOOD ORDERABLES Final Resul t Performing Organization Address [facility] [place] Number [place] [address] [address] Department [place] [address] from Last 3 Months Insurance [facility] CHOICE PLUS CHOICE PLUS CHOICE PLUS Care Teams Cartridge Filler Relationship Specialty Start Date End Date Karla Weston MD [address] [place] [address] DR Jayden CHATMAN [address] [place] [id number] PCP - General Internal Medicine 05/13/22
--- OUTSIDE RECORDS SUMMARY | 2025-03-16 10:11 | XMS_ITS | Clinical Summary ---
Author Organization [facility] Address [address] [place] [address] Care Team Providers Care Respiratory Medicine Physician Name Role Phone Mike Frost MD Unavailable [phone] Yamilet Kirk MD Unavailable [phone] Theodora Morton MD Unavailable [phone] Source Comments [facility],non-owned Affiliates and Associated Physician Practices is amultiple site organization consisting of ambulatory clinics and hospital sitesin [place], [place], [place] and [place]. This disclosure is being madepursuant to the Care Everywhere program and may not contain all information available regarding this patient. Last updated 18.[facility] Allergies Active Allergy Reactions Criticality Noted Date Comments Oat Grain Extract Allergy Skin Test Itching 02/01/2020 Medications * Be aware that medications may not be up to date on this document. Alwaysverify current medications with the patient. calcium-vitamin D (CALTRATE PLUS D) 600-200 MG-UNIT tablet Take 1,200 Tabs by mouth once daily. Active multivitamin daily (THERAGRAN) tablet Take 1 Tab by mouth daily with food. Active JUNEL 1.530 1.5-30 MG-MCG tablet once daily 06/19/2017 Active vitamin D, ergocalciferol, (DRISDOL) 67399 UNITS capsule Take 1 capsule by mouth every 7 days 10/21/2018 Active metFORMIN (GLUCOPHAGE) 500 MG tablet Take 2 tablets twice a day with morning and evening meals 360 tablet 1 04/13/2020 Active topiramate (TOPAMAX) 50 MG tablet Take 1 (one) tablet by mouth 2 times daily Please call office for appt 180 tablet 04/02/2021 Active buPROPion SR 12hr (WELLBUTRIN-SR) 150 MG tablet TAKE 1 TABLET TWICE A DAY. Last refill without being seen 60 tablet 10/01/2021 Active Active Problems Problem Noted Date Diagnosed Date Mixed dyslipidemia 12/23/2017 Leukocytosis 12/04/2016 Infertility, female 02/12/2016 Insulin resistance 02/12/2016 Elevated cortisol level 11/09/2013 Morbid obesity 10/04/2009 Family History Medical History Relation Name Comments Diabetes Father Hyperlipidemia Father Hypertension Father Hypertension Maternal Grandmother Thyroid Disease Maternal Grandmother Hyperlipidemia Mother Hypertension Mother Relation Name Status Comments Father Maternal Grandmother Mother Social History Tobacco Use Types Packs/Day Years Used Date Smoking Tobacco: Never Smokeless Tobacco: Never Tobacco Cessation:Counseling Given: Yes Alcohol Use Standard Drinks/Week Comments Yes 0 (1 standard drink = 0.6 oz pur e alcohol) SOCIALLY Comments No Sex and Gender Information Value Date Recorded Sex Assigned at Not on file Legal Sex Female 11:35 AM CEPHALOMETRIC TRACER Gender Identity Not on file Sexual Orientation Not on file Last Filed Vital Signs Vital Sign Reading Time Taken Comments Blood Pressure 130/80 08/02/2020 9:46 AM CEPHALOMETRIC TRACER Pulse 90 08/02/2020 9:46 AM CEPHALOMETRIC TRACER Temperature 36.5 C (97.7 F) 08/02/2020 9:46 AM CEPHALOMETRIC TRACER Respiratory Rate 17 08/16/2014 10:46 AM CEPHALOMETRIC TRACER Oxygen Saturation 99% 08/02/2020 9:46 AM CEPHALOMETRIC TRACER Inhaled Oxygen Concentration - - Weight 84.4 kg (186 lb) 08/02/2020 9:46 AM CEPHALOMETRIC TRACER Height 157.5 cm (5' 2) 08/02/2020 9:46 AM CEPHALOMETRIC TRACER Body Mass Index 34.02 08/02/2020 9:46 AM CEPHALOMETRIC TRACER Plan of Treatment Health Maintenance Due Date Last Done Comments COLOGUARD (AGES 45-75) - COLON CA SCREENING 1973 COLON MONITORING 1973 COLONOSCOPY - COLON CA SCREENING 1973 CT COLONOGRAPHY - COLON CA SCREENING 1973 Colorectal Cancer Screening 1973 FIT - COLON CA SCREENING 1973 FLEX SIG - COLON CA SCREENING 1973 MAMMOGRAM 1973 HIV SCREENING 1988 HEPATITIS C SCREENING 05/02/1991 DTAP/TDAP/TD VACCINES (1 - Tdap) 1992 HEPATITIS B VACCINE (1 of 3 - 19+ 3-dose series) 1992 PNEUMOCOCCAL VACCINE 50+ (1 of 1 - PCV) 2023 ZOSTER VACCINE (1 of 2) 2023 SCREENING FOR DIABETES 08/05/2023 0, 02/01/2020, 02/01/2020, Additional history exists COVID-19 VACCINE ( - season) 2024 LIPID TESTING 05/25/2024 05/25/2019, 08/2017, 12/13/2017, Additional history exists DEPRESSION SCREENING 08/25/2024 INFLUENZA VACCINE (#1) 2025 HIB VACCINE Aged Out No longer eligi ble based on patient's age to complete this topic HPV VACCINE Aged Out No longer eligi ble based on patient's age to complete this topic MENINGOCOCCAL (Group B) VACCINE SHARED DECISION-MAKING Aged Out No longer eligible based on patient's age to complete this topic MENINGOCOCCAL GROUPS A/C/Y/W VACCINE Aged Out No longer eligible based on patient's age to complete this topic Procedures Procedure Name Priority Date/Time Associated Diagnosis Comments COMPREHENSIVE METABOLIC PANEL Routine 08/05/2020 10:57 AM CEPHALOMETRIC TRACER Insulin resistance Elevated cortisol level Morbid obesity Malaise and fatigue LIPID PROFILE Routine 05/25/2019 7:46 AM CDT Insulin resistance Morbid obesity Mixed dyslipidemia from Last 3 Months or Most Recently Relevant to Health Maintenance Results * (ABNORMAL) COMPREHENSIVE METABOLIC PANEL (08/05/2020 10:57 AM CEPHALOMETRIC TRACER) Glucose 79 65 - 99 mg/dL [facility] BILL BUN 11 6 - 24 mg/dL [facility] Creatinine 1.03(H) 0.57 - 1.00 mg/dL [facility] INSURANCE BILL eGFR by MDRD 65 >59 mL/min/1.7 3 [facility] INSURANCE BILL eGFR by MDRD 75 >59 mL/min/1.7 3 [facility]URANCE BILL BUN/Creatinine Ratio 11 9 - 23 [facility]ILL Sodium 139 134 - 144 mmol/L [facility] Potassium 4.0 3.5 - 5.2 mmol/L [facility] BILL Chloride 105 96 - 106 mmol/L [facility] B[facility] CO2 20 20 - 29 mmol/L [facility] B[facility] Calcium 9.1 8.7 - 10.2 mg/dL [facility] B[facility] Protein Total 6.6 6.0 - 8.5 g/dL [facility] B[facility] Albumin 3.8 3.8 - 4.8 g/dL [facility] Globulin Total 2.8 1.5 - 4.5 g/dL [facility] BILL Albumin/Globulin Ratio 1.4 1.2 - 2.2 [facility] B[facility] Bilirubin Total 0.2 0.0 - 1.2 mg/dL [facility] BILL Alkaline Phosphatase 58 39 - 117 IU/L [facility] B[facility] AST 15 0 - 40 IU/L [facility] B[facility] ALT 10 0 - 32 IU/L [facility] BILL Blood BLOOD SPECIMEN / Unknown 08/05/2020 10:57 AM CEPHALOMETRIC TRACER 08/05/2020 Narrative Resulting Agency Comment Lab Testing performed at: [facility] [address] [facility] [id number] Yamilet Kirk MD LAB - CHEMISTRY ORDERABL ES Final Result [facility] INSURANCE BILL [address] [place] [address] * (ABNORMAL) LIPID PROFILE (05/25/2019 7:46 AM CDT) Cholesterol 199 100 - 199 mg/dL [facility] BILL Triglycerides 178(H) 0 - 149 mg/dL [facility] B[facility] HDL Cholesterol 65 >39 mg/dL [facility] VLDL Calculated 36 5 - 40 mg/dL [facility]ANCE B[facility] LDL Calculated 98 0 - 99 mg/dL [facility]URANCE BILL Comment NOT NEEDED [facility]ANCE BILL Comment: FASTING Ancillary determined the test is not needed. Blood BLOOD SPECIMEN / Unknown 05/25/2019 7:46 AM CDT 05/25/2019 Narrative Resulting Agency Comment Lab Testing performed at: [facility] [address] [facility] [id number] us Yamilet Kirk MD LAB - CHEMISTRY ORDERABL ES Final Result [facility] INSURANCE BILL [address] [place] [address] from Last 3 Months or Most Recently Relevant to Health Maintenance Insurance CARE Advance Directives * FULL RESUSCITATION (Latest Code Status on File) Date Activated Date Inactivated Comments 05/27/2011 8:25 PM 05/29/2011 11:41 PM Care Teams Respiratory Medicine Physician Relationship Specialty [place] [address] [facility] [address] [place] [address] General Surgery 11/09/13 [place] [address] [facility] [address] [place] [address] Endocrinology 02/14/15 Theodora Morton MD [address] [facility] [address] [place] [address] Obstetrics and Gynecology 08/13/17
--- OUTSIDE RECORDS SUMMARY | 2025-03-16 10:11 | XMS_ITS | Encounter Summary ---
Author Organization [facility] Address [address] [facility] [address] [place] [address] Phone Care Team Providers Care Acquisition Specialist Name Role Phone Karla Weston MD Primary Care Provider + Encounter Details Date Type Department Care Team (Late st Contact Info) Description 01/21/2025 Results Follow-Up [facility] [address] [place] [address] Karla Weston MD [address] [place] [address] [address] [place] [address] Lipid panel, Hepatitis C antibody Blood, Vitamin D 25 hydroxy, Additional followed-up results: 3 Social History Tobacco Use Types Packs/Day Years Used Date Smoking Tobacco: Never Smokeless Tobacco: Never AUDIT-C Answer Date Recorded Q1: How often [...] on file Legal Sex Female 4:41 AM BUHR MILL OPERATOR Gender Identity Not on file Sexual Orientation Straight 06/25/2024 2: 48 PM CDT documented as of this encounter Plan of Treatment Not on file documented as of this encounter Visit Diagnoses Not on filedocumented in this encounter Care Teams Acquisition Specialist Relationship Specialty Start Date End Date Karla Weston MD [facility] [facility] [address] Jayden CHATMAN [address] [place] [address] PCP - General Internal Medicine 05/13/22 documented as of this encounter
--- OUTSIDE RECORDS SUMMARY | 2025-03-16 10:11 | XMS_ITS | Encounter Summary ---
Author Organization [facility] Address [address] [place] [address] Care Team Providers Care Asbestos Remover Name Role Phone Karla Weston MD Primary Care Provider + Encounter Details Date Type Department Care Team (Late Contact Info) Description 09/04/2000 Outpatient Historical [facility] MD Jaswinder WELCH, Shamar Chapman MD [address] [place] [phone] Social History Tobacco Use Types Packs/Day Years Used Date Smoking Tobacco: Never Assessed Comments Unknown Sex and Gender Information Value Date Recorded Sex Assigned at Not on file Legal Sex Female 4:31 AM BUSINESS INTELLIGENCE ARCHITECT Gender Identity Not on file Sexual Orientation Not on file documented as of this encounter Plan of Treatment Upcoming Encounters Date Type Department Care Team (Late st Contact Info) Description 03/22/2025 3:30 PM CDT Office Visit [facility] Oncology and Hematology - [place] [address] [place] [address] Oliverio Fishman MD [address] [facility] [address] [place] [address] documented as of this encounter Visit Diagnoses Not on filedocumented in this encounter Care Teams Asbestos Remover Relationship Specialty Start Date End Date Karla Weston MD [address] [place] [address] DR Jayden TOMAS [address] [place] [phone] PCP - General Internal Medicine 06/24/23 documented as of this encounter
--- OUTSIDE RECORDS SUMMARY | 2025-03-16 10:11 | XMS_ITS | Clinical Summary ---
Author Organization [facility] Address [address] [place] [address] Care Team Providers Care Manager Secondary Name Role Phone Karla Wseton MD Primary Care Provider + Allergies Active Allergy Reactions Criticality Noted Date [...] 1 tablet (100 mcg total) by mouth chick grader before breakfast 90 tablet 3 5 09/07/19 [...] needed Assessment & Plan (07/09/2022 12:57 PM SILO OPERATOR): Hypertensive in office and at home, will [...] Is being worked up for this by acquisition marketing coordinator, Dr Lynch Morbid obesity 10/04/2009 Assessment & Plan (05/28/2022 1:51 PM CDT): S/p gastric sleeve 2010 Counseled on diet and role of regular [...] ankle 03/01/2015 05/28/20 Urinary tract infection 01/25/2015 1011/2021 Urticaria, unspecified 02/16/201405/28 Overview (12/05/2017): Impression: Acute. This seems to be improving on current regiimen. I suspect either food allery or viral etiology. Continue regimen. Add Benadryl nightly. Check labs. Refer to Lead Technical Architect. Leukocytosis 02/16/2014 05/28/2022 Right upper quadrant abdominal pain 12/06/2013 05/28/2022 Overview (12/05/2017): Impression: Mild. Nonsurgical exam. Check labs. Terrell diet. Observe. Encounters Date Type Department Care Team Description 01/21/2025 Results Follow-Up [address] [phone] Karla Weston MD Lipid panel, Hepatitis C antibody Blood, Vitamin D 25 hydroxy, Additional followed-up results: 3 01/20/2025 1:30 PM CDT Lab [facility] [place] [facility] at the [address] [phone] Preventative health care; Need for hepatitis C screening test; Vitamin D deficiency; Essential hypertension 01/20/2025 1:00 PM CDT Office Visit [address] [phone] Karla Weston MD Preventative health care (Primary Dx); Essential hypertension; Acquired hypothyroidism; Vitamin D deficiency; Need for hepatitis C screening test; Need for Tdap vaccination 01/05/2025 Results Follow-Up [facility] [address], [place] [phone] Ignacio Felder MD Hemoglobin A1c, TSH 12/30/2024 2:40 PM CDT Lab [address] [address] Insulin resistance; Acquired hypothyroidism 12/30/2024 2:00 PM CDT Office Visit [facility] [address] [place] [address] [address] [place] [address] Ignacio Felder MD Acquired hypothyroidism (Primary Dx); Insulin resistance; Class 1 obesity due to excess calories without serious comorbidity with body mass index (BMI) of 33.0 to 33.9 in adult from Last 3 Months Immunizations Immunization Administration Dates Next Due Influenza, Quadrivalent, Rashida l Culture-based MDCK, Antibiotic Free, Intramuscular 08/25/2020 Moderna SARS-CoV-2 Monovalent Vaccination (12+ Y RS) 08/21/2021 Tdap 01/20/2025 ZOSTER Recombinant 04/24/2024,02/16/2024 Surgical History Surgery Date Site/Laterality Comments LAPAROSCOPIC GASTRIC BANDING Laparosc Gastric Restrictive Proc By Adjustable Gastric Band - (Added by TW Conv) UT LAPAROSCOPY SURG CHOLECYSTECTOMY Cholecystectomy Laparoscopic - (Added by TW Conv) GASTRECTOMY Gastric Surgery For Morbid Obesity Laparoscopic Longitudinal Gastrectomy - (Added by TW Conv) WISDOM TOOTH EXTRACTION Bilateral BARIATRIC SURGERY 06/04 Medical History Medical History Date Comments Hypothyroidism Pre-diabetes Family History Medical History Relation Name Comments Allergic rhinitis Father Orlando Granados Allergic R hinitis - (Added by TW Conv) Diabetes Father Orlando Granados Diabetes Mellit us - (Added by TW Conv) Hyperlipidemia Father Orlando Granados Hyperlipidemi a - (Added by TW Conv) Hypertension Father Orlando Granados Hypertension - (Added by TW Conv) Hyperlipidemia Mother Mayi Embick Hyperlipidemi a - (Added by TW Conv) Hypertension Mother Mayi Embick Hypertension - (Added by TW Conv) polio Mother Mayi Embick Colon cancer Paternal Grandfather Maligna nt Neoplasm, Colon - (Added by TW Conv) Prostate cancer Paternal Grandfather Pros courtney Cancer - (Added by TW Conv) Relation Name Status Comments Brother Alive Father Orlando Granados Alive Mother Mayi Embick Alive Paternal Grandfather Sister Alive Social History Tobacco Use Types Packs/Day Years [...] on file Legal Sex Female 4:41 AM SILO OPERATOR Gender Identity Not on file Sexual Orientation Straight 06/25/2024 2: 48 PM CDT Obstetrics History Last Filed Vital Signs Vital Sign Reading [...] 01/20/2025 12:33 PM CDT Plan of Treatment Health Maintenance Due Date Last Done Comments Hepatitis B Screening 1991 Breast Cancer Screening-Mammogram 02/05/2024 02/04/2023 Covid-19 Vaccine ( season) 2024 08/21/2021, 11/11/2020, 10/14/2020 Influenza Vaccine (#1) 2025 08/25/2020 Depression Screening 01/20/2026 01/20/2025, 12/30/2024, 06/25/2024, Additional history exists Regular Well Visit/Exam 18-64 01/20/2026 01/20/2025, 11/17/2023 Colon Cancer Screening-Colonoscopy 07/30/2026 07/30/2021 Cervical Cancer Screening 05/26/2028 05/26/2023 DTaP/Tdap/Td Vaccine (2 - Td or Tdap) 01/20/2035 01/20/2025 Zoster Vaccine Completed 04/24/2024, 02/16/2024 Hepatitis C Screening Completed 01/20/2025 Pneumococcal vaccine <65 Aged Out No longer eligible based on [...] ORDERABLES Fin al Result Performing Organization Address [facility] de Phone Number [facility] [place] [address] * Hepatitis C antibody Blood (01/20/2025 1:06 PM CDT) Hep C Ab Nonreactive Nonreactive Comment:Antibodies to HCV no t detected. Does NOT exclude the possibility of recent exposure to HCV. Current interpretive data was last revised on 22 Blood 01/20/2025 1:06 PM CDT 01/20/2025 5:34 PM CDT Result [facility] Karla Weston MD LAB MICROBIOLOGY - GENER AL ORDERABLES Final Result Performing Organization Address [facility] de Phone Number [facility] [place] [address] * Vitamin D 25 hydroxy (01/20/2025 1:06 PM CDT) Vitamin D 25-OH 44 30 - 80 ng/mL Blood 01/20/2025 1:06 PM CDT 01/20/2025 5:34 PM CDT Result [facility] Karla Weston MD LAB BLOOD ORDERABLES Fin al Result Performing Organization Address [facility] de Phone Number [facility] Department [place] [address] * (ABNORMAL) CBC without differential (01/20/2025 1:06 PM CDT) [facility] WBC 9.75 3.80 - 9.90 K/cumm Hgb 12.8 11.9 - 15.5 g/dL [facility] Hct 40.4 35.6 - 45.5 % [facility] Plt 229 150 - 400 K/cumm [facility] MPV 12.0 9.1 - 12.3 fL [facility] RBC 4.45 3.90 - 5.20 M/cumm [facility] MCV 90.8 81.3 - 96.4 fL [facility] MCH 28.8 27.1 - 33.3 pg [facility] MCHC 31.7(L) 32.3 - 35.7 g/dL [facility] RDW CV 13.4 11.1 - 14.9 % [facility] RDW SD 45.0 35.7 - 48.1 fL [facility] NRBC abs 0.00 0.00 - 0.01 K/cumm [facility] Blood 01/20/2025 1:06 PM CDT 01/20/2025 5:34 PM CDT Karla Weston MD LAB BLOOD ORDERABLES Fin al Result [facility] [place] [address] * Lipid panel (01/20/2025 1:06 PM CDT) [facility] Cholesterol 181 30 - 199 mg/dL Comment: [...] revised on 2018. Triglycerides 136 <=149 mg/dL [facility] Comment: Interpretive Data Ages < or = [...] revised on 2018. HDL 63 >=40 mg/dL [facility] Comment: Interpretive Data Ages < or = [...] on 2018. LDL, calculated 94 <=129 mg/dL [facility] Comment: Interpretive Data Ages < or = [...] revised on 2024. Non-HDL Cholesterol 118 mg/dL [facility] Comment: Interpretive Data Ages < or = [...] last revised on 2018. Chol/HDL ratio 3 [facility] Blood 01/20/2025 1:06 PM CDT 01/20/2025 5:34 PM CDT Karla Weston MD LAB BLOOD ORDERABLES Fin al Result [facility] [place] [address] * Comprehensive metabolic panel (01/20/2025 1:06 PM CDT) Sodium 145 135 - 145 mmol/L Potassium, pl 4.6 3.3 - 4.9 mmol/L [facility] Chloride 106 97 - 110 mmol/L [facility] CO2 29 22 - 32 mmol/L [facility] Anion gap 10 2 - 15 mmol/L [facility] BUN 14 6 - 25 mg/dL [facility] Creatinine 0.87 0.60 - 1.10 mg/dL [facility] Glucose See Comment 70 - 199 mg/dL [facility] Comment: Credited: Specimen too old Interpretive Data [...] classification and Diagnosis of Diabetes Diabetes Care 202; 46: S19-S40. Current interpretive data was last revised 2022. Calcium 9.5 8.5 - 10.3 mg/dL [facility] Bilirubin, total 0.4 0.1 - 1.2 mg/dL [facility] Protein, pl 6.8 6.5 - 8.5 g/dL [facility] Albumin 3.7 3.5 - 5.0 g/dL [facility] Alk phos 73 40 - 130 Units/L [facility] ALT 13 7 - 45 Units/L [facility] AST 22 10 - 45 Units/L [facility] Blood 01/20/2025 1:06 PM CDT 01/20/2025 5:34 PM CDT Karla Weston MD LAB BLOOD ORDERABLES Fin al Result [facility] [place] [address] * (ABNORMAL) TSH (12/30/2024 2:51 PM CDT) Thyroid Stimulating Hormone 0.24(L) 0.30 - 4.20 mcIUnit/mL Blood 12/30/2024 2:51 PM CDT 12/30/2024 6:36 PM CDT Ignacio Felder MD LAB BLOOD ORDERABLES Final Resul t [facility] [address] [place] [address] * T4, free (12/30/2024 2:51 PM CDT) Free T4 1.32 0.90 - 1.70 ng/dL Blood 12/30/2024 2:51 PM CDT 12/30/2024 6:36 PM CDT Ignacio Felder MD LAB BLOOD ORDERABLES Final Resul t Performing Organization Address [facility] [place] [address] [address] [place] [address] * Hemoglobin A1c (12/30/2024 2:51 PM CDT) Hgb A1C 5.2 4.0 - 5.6 % Estimated Average Glucose 103 mg/dL [facility] Comment: The ADA recommends reporting an estimated Average Glucose (eAG) with all Hemoglobin A1c results using the equation derived from a study of 507 normal and diabetic adults. Minority populations were underrepresented and children were not included. (Diabetes Care 31:9663-7676, 2008). The eAG is not equivalent to a fasting glucose. Blood 12/30/2024 2:51 PM CDT 12/30/2024 6:36 PM CDT Ignacio Felder MD LAB BLOOD ORDERABLES Final Resul t Performing Organization Address [facility] [place] Number [place] [address] [address] [place] [address] from Last 3 Months Insurance [facility] CHOICE PLUS CHOICE PLUS Care Teams Manager Secondary Relationship Specialty Start Date End Date Karla Weston MD [address] [place] [address] DR Jayden CHATMAN [address] [place] [phone] PCP - General Internal Medicine 05/13/22
--- OUTSIDE RECORDS SUMMARY | 2025-03-16 10:11 | XMS_ITS | Encounter Summary ---
Author Organization [facility] Health Address [address] [place] [address] Care Team Providers Care Engineer Of System Development Name Role Phone Mike Frost MD Unavailable Yamilet Kirk MD Unavailable [phone] Theodora Morton MD Unavailable [phone] Encounter Details Date Type Department Care Team (Late st Contact Info) Description 12/05/2021 Lab Requisition [facility] Care DermPath Lab [address] 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 Gender Identity Not on file Sexual Orientation Not on file documented as of this encounter Plan of Treatment Not on file documented as of this encounter Procedures Procedure Name Priority Date/Time Associated Diagnosis Comments DERMPATH SLIDE CONSULT Routine 12/05/2021 12:00 AM CDT documented in this encounter Results * DERMPATH SLIDE CONSULT (12/05/2021 12:00 AM CDT) Case Report Dermatopathology Report Case: [id number] Authorizing Provider: Roberto Carlos Catalan MD Collected: 12/05/2021 12:00 AM Ordering Location: [facility] DermPath Lab Received: 12/05/2021 09:59 AM Pathologist: Maria Guadalupe Sy MD Specimen: Slide(s), Mid back, Lower back, OSC# [id number] 2 5:18 PM T DERMATOPATHOLOGY LABORATORY Final Diagnosis Specimen A1. Slide(s), Mid back, OSC# [id number]: COMPOUND MELANOCYTIC PROLIFERATION; PRESENT AT MARGIN (D48.5) (see microscopic description and comment) Specimen A2. Slide(s), Lower back, OSC# [id number]: PERSISTENT (RECURRENT) NEVUS (D22.9) (see microscopic description and comment) 2 5:18 PM T DERMATOPATHOLOGY LABORATORY at 1718 CDT Clinical History Materials received from: [facility] [address] [place] [address] A1: Received at the request of Dr. Roberto Carlos Catalan, a consult will be performed on 10 (H&E, Shannon A) slide(s) labeled [id number]. Superficial spreading melanoma. All slides returned. A2: Received at the request of Dr. Roberto Carlos Catalan, a consult will be performed on 10 (H&E) slide(s) labeled [id number]. Compound melanocytic nevus. All slides returned. Any additional sections, special stains or immunohistochemical stains performed by our laboratory will be kept here on file. 2 5:18 PM CDT DERMATOPATHOLOGY LABORATORY Microscopic Description Specimen A1. Slide(s), Mid back, OSC# [id number]: Sections show a compound melanocytic proliferation. There is a lentiginous proliferation of melanocytes between irregular nests. Scattered melanocytes show evidence of upward migration within the epidermis. In the dermis there are irregular nests of melanocytes. This lesion is present at the margin of the specimen. The provided MART-1/Melan-A immunohistochemical stain was reviewed and repeated in red at [facility] Dermatopathology and highlights the melanocytes as above. COMMENT: Because this lesion is present at the margin of the specimen, symmetry and circumscription can not be evaluated. Therefore, a complete but conservative re-excision is recommended to evaluate this lesion in its entirety. This case was also reviewed by Dr. Shireen Levi who agrees with the diagnosis. Specimen A2. Slide(s), Lower back, OSC# [id number]: There is a lentiginous proliferation of nevus cells at the dermal-epidermal junction between focal nests. Within the dermis, there are nests of small, monomorphous melanocytes. Above this, there are fibroblasts and collagen bundles oriented parallel to the skin surface consistent with a dermal scar. The provided MART-1/Melan-A immunohistochemical stain highlights the melanocytes as above. COMMENT: This case was also reviewed by Dr. Shireen Levi who agrees with the diagnosis. 2 5:18 PM CDT DERMATOPATHOLOGY LABORATORY Disclaimer An external and internal positive and negative controls are appropriate for the histochemical, immunohistochemical and immunofluorescence stain(s) in this case (if any), except where stated explicitly. The performance characteristics of the stain(s) cited in this report were developed and its performance characteristic determined by the Dermatopathology Laboratory at [facility], directed by Dr. Binu Hopkins. These tests need not be, and therefore are not, approved by the [place] Food and Drug Administration. The tests are used for clinical purposes. Billing Codes Specimen Charges Stain Charges 67135 1 37532 1 2 5:18 PM CDT DERMATOPATHOLOGY LABORATORY Embedded Images 2 5:18 PM CDT DERMATOPATHOLOGY LABORATORY Pathology/Cytolog y SLIDE / Unknown 12/05/2021 12/05/2021 9:59 AM CDT us Roberto Carlos Catalan MD LAB - PATHOLOGY/CYTOLOGY ORDER FIFI Final Result DERMATOPATHOLOGY LABORATORY [facility] - Department of Dermatology [facility] Medicine [address] [place] [address], [address] [phone] documented in this encounter Visit Diagnoses Not on filedocumented in this encounter Care Teams Engineer Of System Development Relationship Specialty [place] [address] [facility] [address] [place] [address] General Surgery 11/09/13 [place] [address] [facility] [address] [place] [address] Endocrinology 02/14/15 Theodora Morton MD [address] [facility] [address] [place] [address] Obstetrics and Gynecology 08/13/17 documented as of this encounter
--- OUTSIDE RECORDS SUMMARY | 2025-03-16 10:11 | XMS_ITS | Clinical Summary ---
Author Organization [facility] Administrative Offices Address [address] [place] [address] Care Team Providers Care Glaze Grinder Name Role Phone Karla Weston MD Primary Care Provider + Allergies Active Allergy Reactions Criticality Noted Date Comments Colloidal Oatmeal Itching Low 02/01/2020 Medications cetirizine (ZyrTEC) 10 mg tablet daily. Active ergocalciferol (VITAMIN D2) 50,000 unit capsule ergocalciferol (vitamin D2) 1,250 mcg (50,000 unit) capsule Active Synthroid 100 mcg tablet 2 Active losartan (COZAAR) 100 mg tablet 2 Active metFORMIN (GLUCOPHAGE XR) 500 mg Extended Release 24 hour tablet 2 Active Danni Fe 1.5/30, 28, 1.5 mg-30 mcg (21)/75 mg (7) tablet 2 Active semaglutide (Ozempic) 0.25 mg or 0.5 mg(2 mg/1.5 mL) Pen Injector Ozempic 0.25 mg or 0.5 mg (2 mg/1.5 mL) subcutaneous pen injector Active ascorbic acid, vitamin C, (VITAMIN C) 1,000 mg Tablet Take 1,000 mg by mouth daily. Active cyanocobalamin 1,000 mcg Tablet Take 1,000 mcg by mouth daily. Active liothyronine (CYTOMEL) 5 mcg Tablet 3 Active Active Problems No known active problems Encounters Date Type Department Care Team Description 03/09/2025 External Device Data ST[facility] ABSTRACTION Provider, Abstract 03/09/2025 External Device Data [facility] ABSTRACTION Provider, Abstract 02/08/2025 External Device Data [facility] ABSTRACTION Provider, Abstract 01/13/2025 External Device Data [facility] ABSTRACTION Provider, Abstract 01/12/2025 External Device Data [facility] ABSTRACTION Provider, Abstract 01/11/2025 External Device Data [facility] ABSTRACTION Provider, Abstract from Last 3 Months Family History Medical History Relation Name Comments No Known Problems Brother Diabetes Father Diabetes Mother No Known Problems Sister Relation Name Status Comments Brother Alive Father Alive Mother Alive Sister Alive Social History Tobacco Use Types Packs/Day Years Used Date Smoking Tobacco: Never Smokeless Tobacco: Never Tobacco Cessation:Counseling Given: Not Answered Alcohol Use Standard Drinks/Week Comments Yes 0 (1 standard drink = 0.6 oz pur e alcohol) socially Comments Unknown Sex and Gender Information Value Date Recorded Sex Assigned at Not on file Legal Sex Female 4:31 AM ART THERAPIST Gender Identity Not on file Sexual Orientation Not on file Last Filed Vital Signs Vital Sign Reading Time Taken Comments Blood Pressure 132/84 06/22/2024 3:29 PM CDT Pulse 86 06/22/2024 3:29 PM CDT Temperature 36.7 C (98 F) 06/22/2024 3:29 PM CDT Respiratory Rate 16 06/22/2024 3:29 PM CDT Oxygen Saturation 97% 06/22/2024 3:29 PM CDT Inhaled Oxygen Concentration - - Weight 88 kg (194 lb) 06/22/2024 3:29 PM CDT Height 157.5 cm (5' 2) 09/04/2022 2:51 PM ART THERAPIST Body Mass Index 35.48 09/04/2022 2:51 PM ART THERAPIST Plan of Treatment Upcoming Encounters Date Type Department Care Team (Late st Contact Info) Description 03/22/2025 3:30 PM CDT Office Visit [facility] Oncology and Hematology - [place] [address] [facility] [address] [place] [address] Oliverio Fishman MD [address] [facility] [address] [place] [address] Health Maintenance Due Date Last Done Comments Pre-Diabetes and Diabetes Screening 1973 DTAP/TDAP/TD VACCINES (1 - Tdap) 1992 HEPATITIS B VACCINES (1 of 3 - 19+ 3-dose series) 04/25 HPV/Cotest (21-29) 1994 CERVICAL CANCER SCREENING 2003 HPV/Cotest (30-65) 2003 PAP SMEAR 2003 BREAST CANCER SCREENING 2013 COLORECTAL SCREENING 2018 Colorectal Cancer Screening 2018 FIT-DNA Q 3 years 2018 FIT/FOBT Q 1 year 2018 Flex Sig/CT Colonography Q 5 years 2018 ZOSTER VACCINE (1 of 2) 2023 Preventative Visit- Commercial 08/25/2024 11/17/2023 INFLUENZA VACCINE (#1) 2025 08/25/2020 Insurance [employer] [facility] [employer] [id number] Care Teams Glaze Grinder Relationship Specialty Start Date End Date Karla Weston MD [facility] [facility] [address] Jayden CHATMAN [address] [place] [phone] PCP - General Internal Medicine 06/24/23
--- OUTSIDE RECORDS SUMMARY | 2025-03-16 10:11 | XMS_ITS | Encounter Summary ---
Author Organization [facility] Address 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 [address] [place] [address] Oliverio Fishman MD [address] [facility] [address] [place] [address] documented as of this encounter Visit Diagnoses Not on filedocumented in this encounter Care Teams Scientist Electronics Relationship Specialty Start Date End Date Karla Weston MD [address] [place] [address] DR Jayden TOMAS [address] [place] [phone] PCP - General Internal Medicine 06/24/23 documented as of this encounter
[2025-03-16 10:20] LABS: Hematocrit 39.0 % (37.0-47.0); Hemoglobin 12.4 g/dL (12.0-15.0); Mean Corpuscular HGB Conc 31.8 g/dl (32-36); Mean Corpuscular Hemoglobin 28.6 pg (26-34); Mean Corpuscular Volume 90.1 fl (80-100); Platelet Count Result 224 k/mm3 (150-375); Red Blood Count 4.33 M/mm3 (4.2-5.4); White Blood Count 4.7 K/mm3 (4.5-10.0)
[2025-03-16 12:24] LABS: Iron 71 ug/dL (37-170)
[2025-03-16 12:27] LABS: Anion Gap 6 mmol/L (4-12); Blood Urea Nitrogen 14 mg/dL (7-17); Calcium 9.0 mg/dL (8.4-10.2); Carbon Dioxide 26 mmol/L (22-30); Chloride 103 mmol/L (98-107); Estimated Glomerular Filt Rate > 60; Glucose 84 mg/dL (65-110); Potassium 3.9 mmol/L (3.4-5.0); Sodium 135 mmol/L (137-145)
[2025-03-16 12:34] LABS: Percent Iron Saturation 21 % (20-50)
[2025-03-16 13:07] LABS: Ferritin 236.00 ng/mL (11.1-264)
[2025-03-16 13:23] LABS: Vitamin B12 > 1000.0 pg/mL (239-931)
== END 2025-03-16 10:07 | disposition home or self-care (01) ==
PROVIDERS: Visit Provider Internal Medicine Hematology & Oncology
DX: D64.9 Anemia, unspecified (principal)
CPT/HCPCS: 36415; 80048; 82607; 82728; 83540; 83550; 85027

== ENCOUNTER 2025-06-10 15:45 | Emergency (ER) | payer OTHER, SELFPAY ==
--- NOTE | 2025-06-10 15:49 | ED.URI ---
HPI - URI/Sore Throat General Chief Complaint: Upper Respiratory Infection Stated Complaint: Sore Throat Time Seen by Provider: 06/10/25 15:57 Source: patient, RN notes reviewed and old records reviewed Mode of arrival: ambulatory Limitations: no limitations History of Present Illness HPI Narrative: 50-year-old female presents to the [facility] with a sore throat since yesterday, frontal headache. Denies fevers. Related Data Home Medications ?Medication ?Instructions ?Recorded ?Confirmed ?Last Taken ?Type ergocalciferol (vitamin D2) 1,250 50,000 unit PO WEEKLY 11/21/20 09/27/22 Unknown History mcg (50,000 unit) capsule levothyroxine 100 mcg tablet 100 mcg PO DAILY 03/26/22 09/27/22 Unknown History (Synthroid) losartan 25 mg tablet 25 mg PO DAILY 06/24/22 09/27/22 Unknown History metformin 500 mg tablet,extended 50 mg PO DAILY 09/03/22 09/27/22 Unknown History release 24 hr semaglutide 0.25 mg or 0.5 mg (2 See Rx Instructions .Route 09/03/22 09/27/22 Unknown History mg/1.5 mL) subcutaneous pen .COMPLEX rx injector (Ozempic) Allergies Allergy/AdvReac Type Severity Reaction Status Date / Time No Known Allergies Allergy Mild Verified 06/10/25 16:04 Review of Systems Review of Systems: All systems reviewed & are unremarkable except as noted in HPI and below Constitutional: Constitutional: Reports no additional constitutional complaints ENT: Reports as per HPI and Reports sore throat Cardiovascular: Cardiovascular: Reports no additional cardiovascular complaints, Denies chest pain and Denies dyspnea Respiratory: Respiratory: Reports no additional respiratory complaints, Denies chest congestion, Denies cough and Denies dyspnea Musculoskeletal: Musculoskeletal: Reports no additional musculoskeletal complaints Integumentary/Breasts: Skin/Breast: Reports system reviewed and no additional complaints, except as docu PMFSH Past Medical History Medical History Anxiety and depression Migraine UTI (urinary tract infection) Surgical History Surgical History History of cholecystectomy History of gastric bypass History of laparoscopic adjustable gastric banding Family History Family History Father Diabetes mellitus Social History Social History Smoking status: Never smoker Alcohol intake: never Substance use: never Substance use type: does not use Living arrangements: alone Gender identity (if verbalized by the patient): Female Spiritual care concerns: No Comments At the time of my signature, I reviewed and agree with the nursing past medical, surgical, social, and family history. There is no relevant family history pertinent to the patient complaint. Exam Const: General: cooperative, healthy appearing, comfortable, no acute distress, well developed, alert and well nourished Nutritional Appearance: well nourished Orientation/consciousness: patient oriented x3 Limitations: no limitations HENMT: Head: normal to inspection Ears: hearing grossly normal bilaterally, external ears normal, TM's normal bilaterally, EAC's normal, mastoids normal and no periauricular adenopathy Face/Nose/Sinus: Normal external nose present, Normal nares present and Normal nasal mucous membranes and turbinates present Face and sinus: normal facial exam, sinuses nontender and face symmetric Mouth: Yes Normal oral and palatal mucosa present, Yes lip normal, Yes tongue normal and Yes moist mucous membranes Throat: posterior oropharynx normal, tonsils normal, uvula midline and no uvular edema Eyes: General: appearance normal, both eyes and all related structures Alignment and Position: alignment normal Neck: Neck: normal visual inspection, full ROM, no lymphadenopathy and no meningeal signs Chest: Chest palpation & inspection: normal inspection of the chest Resp: Effort & Inspection: normal respiratory effort and able to speak in complete sentences Auscultation: clear to auscultation bilaterally, no crackles, no rales, no rhonchi and no wheezes Cardio: Rate: regular rate Skin: General skin exam: normal color and no rashes or lesions noted Neuro: General: patient oriented x3, gait normal, moves all extremities and no meningeal signs Cognition (Neuro): normal cognition Speech: normal speech Gait exam (Neuro): Normal gait present Extrem: General: normal to inspection, full ROM, capillary refill normal and normal gait Psych: Appearance: grossly normal and well kempt Mental Status: mental status grossly normal Speech and movement: Normal speech and movement present and Clear speech present Affect: normal affect Attitude: cooperative Course Course Level of Care: Express Care Visit Vital Signs Vital signs: Vital Signs Temperature 97.4 F L 06/10/25 16:00 Pulse Rate 77 06/10/25 16:00 Respiratory Rate 18 06/10/25 16:00 Blood Pressure 131/79 06/10/25 16:00 Pulse Oximetry 100 06/10/25 16:00 Oxygen Delivery Room Air 06/10/25 16:00 Temperature 97.4 F L 06/10/25 16:00 Pulse Rate 77 06/10/25 16:00 Respiratory Rate 18 06/10/25 16:00 Blood Pressure 131/79 06/10/25 16:00 Pulse Oximetry 100 06/10/25 16:00 Oxygen Delivery Room Air 06/10/25 16:00 Reviewed MDM - URI/Sore Throat MDM Narrative Medical decision making narrative: Patient sitting in exam room. Patient is nontoxic, vitals stable. Sore throat since yesterday. Strep culture negative, will culture. Patient appropriate for outpatient treatment with close follow-up Discharge instructions reviewed with patient, as well as provided in writing per nursing staff. The instructions also include specific and strict return/GO TO THE ER as well as f/u information. All questions have been answered, and the patient deny any further questions with discharge and discharge plan. Some parts of this dictation were generated by voice recognition software and may contain typographical and/or grammatical inaccuracies. Differential Diagnosis Differential diagnosis: Likely upper respiratory infection, otitis media, sinusitis, viral infection, bronchitis, influenza and pharyngitis Lab Data Labs: Lab Results 06/10/25 Range/Units 16:11 POC Grp A Strep Screen Negative (Negative) Reviewed Critical Care Time Critical Care Time Critical Care Time: No Discharge Plan Discharge Clinical Impression: Pharyngitis Qualifiers: Pharyngitis/tonsillitis etiology: unspecified etiology Qualified Code(s): J02.9 - Acute pharyngitis, unspecified Patient Disposition: Home Condition: Stable Instructions: Antibiotic Form, Pharyngitis (ED) Additional Instructions: Your rapid strep swab was negative today at [facility]. A throat culture will be sent to the laboratory for further testing. If the test is positive, you will receive a phone call within 48 hours and an appropriate antibiotic will be initiated at that time. Your symptoms are likely due to a viral illness, which is not treated with antibiotics. Typically viral infections last 7-10 days, can linger for couple of weeks. It is very important to treat your symptoms. Drink plenty of water, Gatorade, Pedialyte, ice pops or Jell-O. -Alternate Tylenol and Motrin per package directions for fever or pain. You can alternate every 4 hours -Antihistamine medication such as Zyrtec/Claritin/Monica during the day can help improve symptoms. -doing daily nasal irrigations can help relieve pressure your sinuses. Things like a Neti pot -Use Flonase twice a day for 5 days then daily to help reduce the inflammation and dry up your sinuses. -You can also use Mucinex. Be sure to drink plenty of water with this medication at least 8 ounces with every dose and it is important to drink 8 to 10 glasses of water per day. Water is a natural decongestant -Eat and drink things that are easy to swallow, like tea or soup, or popsicles. -Oral rinses such as: Salt water gargles and/or may use topical anesthetic (eg. Chloraseptic spray) or lozenges to relieve dryness or throat pain). -Frequent hand washing or hand corporate paralegal is one of the best ways to prevent spread of infection. -Using a vaporizer or humidifier at night will also help thin secretions and help with coughing up phlegm. -Follow up with primary care provider in 7-10 days if condition is not improving - For new or worsening symptoms go directly to the nearest ER Patient Language: Malay Prescriptions: No Action levothyroxine [Synthroid] 100 mcg tablet 100 mcg PO DAILY losartan 25 mg tablet 25 mg PO DAILY metformin 500 mg tablet extended release 24 hr 50 mg PO DAILY Ozempic 0.25 mg or 0.5 mg(2 mg/1.5 mL) pen injector See Rx Instructions .ROUTE .COMPLEX Rx Instructions: rx ergocalciferol (vitamin D2) 1,250 mcg (50,000 unit) capsule 50,000 unit PO WEEKLY Follow-up/Referrals: UNKNOWN,DOCTOR [Non-Staff] Stand Alone Forms: Work/School Release IP Time of Disposition: 16:13
[2025-06-10 16:00] VITALS: BP 131/79; PULSE 77; RESP 18; TEMP 36.3; O2SAT 100
[2025-06-10 16:14] LABS: EDSTREPNEGPOS1 Negative (Negative)
== END 2025-06-10 16:20 | disposition home or self-care (01) ==
PROVIDERS: Emergency Provider Nurse Practitioner
DX: J02.9 Acute pharyngitis, unspecified (principal)
CPT/HCPCS: 87081; 87880; 99213; G0463